=== PATIENT | male | born 1955 | race Caucasian/White ===

== ENCOUNTER 2019-03-14 13:38 | Outpatient (RCR) | payer OTHER, SELFPAY ==
[2018-12-27 15:01] LABS: INR 3.1; Prothrombin Time 31.1 Seconds (11.1-14.7)
[2019-01-24 10:29] LABS: INR 3.5; Prothrombin Time 34.2 Seconds (11.1-14.7)
[2019-02-24 10:27] LABS: INR 3.9; Prothrombin Time 37.3 Seconds (11.1-14.7)
[2019-03-14 15:08] LABS: INR 2.5; Prothrombin Time 26.9 Seconds (11.1-14.7)
== END 2019-03-27 23:59 | disposition home or self-care (01) ==
LOC: ANHLAB 13:38
PROVIDERS: Visit Provider Internal Medicine Cardiovascular Disease
DX: Z51.81 Encounter for therapeutic drug level monitoring (principal); I48.92 Unspecified atrial flutter; Z79.01 Long term (current) use of anticoagulants
CPT/HCPCS: 36415; 85610

== ENCOUNTER 2019-06-25 07:27 | Outpatient (RCR) | payer MEDICARE, OTHER, SELFPAY ==
[2019-04-04 08:24] LABS: INR 3.4; Prothrombin Time 33.9 Seconds (11.1-14.7)
[2019-04-29 07:34] LABS: INR 3.4; Prothrombin Time 33.8 Seconds (11.1-14.7)
[2019-05-27 08:01] LABS: INR 4.8
[2019-06-04 08:51] LABS: INR 3.4; Prothrombin Time 33.5 Seconds (11.1-14.7)
[2019-06-25 08:11] LABS: INR 3.4; Prothrombin Time 33.4 Seconds (11.1-14.7)
== END 2019-07-03 23:59 | disposition home or self-care (01) ==
LOC: ANHLAB 07:27
PROVIDERS: Visit Provider Internal Medicine Cardiovascular Disease
DX: Z51.81 Encounter for therapeutic drug level monitoring (principal); I48.92 Unspecified atrial flutter; Z79.01 Long term (current) use of anticoagulants
CPT/HCPCS: 36415; 85610

== ENCOUNTER 2019-10-13 16:28 | Outpatient (RCR) | payer MEDICARE, SELFPAY ==
[2019-07-23 08:06] LABS: INR 3.9; Prothrombin Time 37.4 Seconds (11.1-14.7)
[2019-08-20 08:16] LABS: INR 2.8; Prothrombin Time 28.6 Seconds (11.1-14.7)
[2019-09-16 14:54] LABS: INR 3.5; Prothrombin Time 34.3 Seconds (11.1-14.7)
[2019-10-13 17:40] LABS: INR 3.3; Prothrombin Time 33.2 Seconds (11.1-14.7)
== END 2019-10-21 23:59 | disposition home or self-care (01) ==
LOC: ANHLAB 16:28
PROVIDERS: Visit Provider Internal Medicine Cardiovascular Disease
DX: Z51.81 Encounter for therapeutic drug level monitoring (principal); I48.92 Unspecified atrial flutter; Z79.01 Long term (current) use of anticoagulants
CPT/HCPCS: 36415; 85610

== ENCOUNTER 2020-01-20 07:06 | Outpatient (RCR) | payer MEDICARE, SELFPAY ==
[2019-11-18 07:36] LABS: Hematocrit 39.1 % (42.0-52.0); Hemoglobin 13.7 g/dL (14.0-18.0); Mean Corpuscular Hemoglobin 31.6 pg (26-34); Mean Corpuscular Volume 90.3 fl (80-100); Mean Platelet Volume 11.6 fl (7.4-10.4); Platelet Count Result 141 k/mm3 (150-375); Red Blood Count 4.33 M/mm3 (4.6-6.20); Red Cell Distribution Width 13.2 % (11.5-14.5); White Blood Count 4.2 K/mm3 (4.5-10.0)
[2019-11-18 07:43] LABS: Add Urine Microscopic? YES; Appearance Urine Clear (Clear); Bilirubin Urine Negative (Negative); Blood Urine Negative (Negative); Color Urine Yellow (Yellow); Glucose Urine UA Negative (Negative); Ketones Urine Negative (Negative); Leukocyte Esterase Ur Negative LEU/UL (NEGATIVE); Mucus Urine Rare /lpf; Nitrate Urine Negative (Negative); Protein Urine Negative (Negative); RBC Urine 0-2 /hpf (0-2); Squamous Epithelial Cell Urine Rare /hpf (Few); Urobilinogen Urine Negative mg/dL (<2.0); WBC Urine 0-3 /hpf (0-3)
[2019-11-18 07:46] LABS: INR 2.8; Prothrombin Time 28.8 Seconds (11.1-14.7)
[2019-11-18 08:01] LABS: Alanine Aminotransferase 42 U/L (4-50); Albumin Level 4.3 g/dL (3.5-5.1); Alkaline Phosphatase 48 U/L (38-126); Anion Gap 7 mmol/L (8-16); Aspartate Amino Transferase 36 U/L (17-59); Bilirubin,Total 0.6 mg/dL (0.2-1.3); Blood Urea Nitrogen 17 mg/dL (9-20); Calcium 9.5 mg/dL (8.4-10.2); Carbon Dioxide 29 mmol/L (22-30); Chloride 103 mmol/L (98-107); Estimated Glomerular Filt Rate > 60; Glucose 166 mg/dL (75-110); Potassium 4.1 mmol/L (3.4-5.0); Sodium 139 mmol/L (137-145)
[2019-11-18 08:07] LABS: Hemoglobin A1C 6.3 % (<5.7)
[2019-11-18 08:32] LABS: Thyroid Stimulating Hormone 0.937 uIU/mL (0.465-4.680)
[2019-11-19 13:08] LABS: Reference Lab Test Result Negative
[2019-12-18 13:13] LABS: INR 2.5; Prothrombin Time 27.6 Seconds (11.1-14.7)
[2020-01-20 08:06] LABS: INR 3.3; Prothrombin Time 33.8 Seconds (11.1-14.7)
== END 2020-02-16 23:59 | disposition home or self-care (01) ==
LOC: ANHLAB 07:06
PROVIDERS: PCP Family Medicine Sports Medicine; Visit Provider Internal Medicine Cardiovascular Disease
DX: Z01.84 Encounter for antibody response examination (principal); Z51.81 Encounter for therapeutic drug level monitoring; I48.92 Unspecified atrial flutter; E11.9 Type 2 diabetes mellitus without complications; N52.9 Male erectile dysfunction, unspecified; Z79.01 Long term (current) use of anticoagulants; Z12.5 Encounter for screening for malignant neoplasm of prostate
CPT/HCPCS: 36415; 80053; 81001; 83036; 84153; 84443; 85027; 85610; 86769

== ENCOUNTER → 2020-02-17 09:50 | Outpatient (CLI) | payer MEDICARE, SELFPAY ==
--- NOTE | ~2020-02-17 | XR_ITS ---
XR knee RT 3V DATE: 02/17/2020 10:29 INDICATION: Osteoarthritis TECHNIQUE: [place] and standing AP and lateral views COMPARISON: None FINDINGS: There is moderate loss of joint space and mild periarticular spurring at the medial compart ment. More prominent periarticular spurring is noted at the patellofemoral joint. Lateral compartment joint space is well preserved. There is hypertrophic change of the tibial spines. No fracture, dislocation, periosteal reaction or bone destruction is evident. Mild suprapatellar knee joint effusion is suggested. IMPRESSION: Mild suprapatellar knee joint effusion Osteoarthritis involving the medial and patellofemoral compartments Reviewed, dictated and finalized at location B. CLE MODIFICATION TECHNICIAN
--- NOTE | ~2020-02-17 | XR_ITS ---
XR knee LT 3V DATE: 02/17/2020 10:29 INDICATION: Osteoarthritis TECHNIQUE: Standing AP and lateral views. [place] view. COMPARISON: None FINDINGS: Moderate osteopenia. There is moderate suprapatellar knee joint effusion. There is severe osteoarthritis of the medial compartment, with virtual obliteration of medial compart ment knee joint space. There is moderately severe osteoarthritis at the patellofemoral compartment an d mild osteoarthritis at the lateral compartment. Chondrocalcinosis is noted. There is mild lateral femoral tibial subluxation. No fracture, dislocation, periosteal reaction or bone destruction is detected. There is extensive arterial calcification. IMPRESSION: Tricompartment osteoarthritis, particularly severe at the medial and patellofemoral becky rtments Knee joint effusion Chondrocalcinosis Reviewed, dictated and finalized at location B. NFORMATICS DEVELOPER IMPRESSION: Tricompartment osteoarthritis, particularly severe at the medial an d patellofemoral compartments Knee joint effusion Chondrocalcinosis
== END ==
PROVIDERS: PCP Family Medicine Sports Medicine; Visit Provider Nurse Practitioner Adult Health
DX: M25.461 Effusion, right knee (principal); M25.462 Effusion, left knee; M17.0 Bilateral primary osteoarthritis of knee
CPT/HCPCS: 73562

== ENCOUNTER → 2020-02-19 13:16 | Outpatient (CLI) | payer MEDICARE, SELFPAY ==
--- NOTE | ~2020-02-19 | MR_ITS ---
EXAMINATION: MR lumbar spine wo con DATE: 02/19/2020 14:08 INDICATION: Lumbar radiculopathy. TECHNIQUE: Magnetic resonance imaging (MRI) of the lumbar spine was performed without intravenous con trast. Sequences included sagittal T2-weighted FSE, sagittal T2-weighted FS FSE, sagittal T1-weighted FSE, and axial T2-weighted FSE. COMPARISON: Lumbar spine MRI 05/04/2010 FINDINGS: There is 9 degrees dextrocurvature of lumbar spine. There is 4 mm retrolisthesis of L2 on L 3 and 5 mm retrolisthesis of L3 on L4. There is 3 mm anterolisthesis of L5 on S1. There are Schmorl's nodes at many levels. There is moderately decreased disc height at L2-L3 and L3-L4. The distal spina l cord signal intensity is normal. The conus medullaris is at L1-L2. There is a 2.1 cm cyst in left [place]. The following disc levels are specifically discussed: L1-L2: The disc is bulging. There is severe right and mild left facet joint osteoarthritis. There is mild right neural foraminal stenosis. There is mild central canal stenosis. L2-L3: The disc is bulging. There is mild bilateral facet joint osteoarthritis. There is moderate rolf ateral neural foraminal stenosis. There is mild central canal stenosis. L3-L4: The disc is bulging and has an annular fissure. There is moderate bilateral facet joint osteoa rthritis. There is moderate right and severe left neural foraminal stenosis. There is mild central ca nal stenosis. L4-L5: The disc is bulging and has an annular fissure. There is severe bilateral facet joint osteoart hritis. There is moderate bilateral neural foraminal stenosis. There is mild central canal stenosis. L5-S1: The disc is bulging. There is severe bilateral facet joint osteoarthritis. There is moderate b ilateral neural foraminal stenosis. There is mild central canal stenosis. IMPRESSION: 1. Moderate lumbar spondylosis, worsened from 05/04/2010. Reviewed, dictated and finalized at location A. COURSE RANGER
== END ==
PROVIDERS: PCP Family Medicine Sports Medicine; Visit Provider Nurse Practitioner Adult Health
DX: M47.26 Other spondylosis with radiculopathy, lumbar region (principal)
CPT/HCPCS: 72148

== ENCOUNTER 2020-04-12 07:16 | Outpatient (RCR) | payer MEDICARE, SELFPAY ==
[2020-02-17 11:32] LABS: INR 2.9
[2020-03-17 07:31] LABS: INR 3.8; Prothrombin Time 37.6 Seconds (11.1-14.7)
[2020-04-12 08:03] LABS: INR 2.5; Prothrombin Time 27.9 Seconds (11.1-14.7)
== END 2020-05-17 23:59 | disposition home or self-care (01) ==
LOC: ANHLAB 07:16
PROVIDERS: PCP Family Medicine Sports Medicine; Visit Provider Internal Medicine Cardiovascular Disease
DX: Z51.81 Encounter for therapeutic drug level monitoring (principal); I48.92 Unspecified atrial flutter; Z79.01 Long term (current) use of anticoagulants
CPT/HCPCS: 36415; 85610

== ENCOUNTER 2020-08-06 09:44 | Outpatient (RCR) | payer MEDICARE, SELFPAY ==
[2020-05-18 08:07] LABS: INR 3.3; Prothrombin Time 33.7 Seconds (11.1-14.7)
[2020-06-15 12:43] LABS: INR 3.7; Prothrombin Time 36.9 Seconds (11.1-14.7)
[2020-07-06 07:58] LABS: INR 3.5; Prothrombin Time 35.5 Seconds (11.1-14.7)
[2020-07-06 08:07] LABS: Anion Gap 8 mmol/L (8-16); Blood Urea Nitrogen 18 mg/dL (9-20); Calcium 9.6 mg/dL (8.4-10.2); Carbon Dioxide 30 mmol/L (22-30); Chloride 102 mmol/L (98-107); Estimated Glomerular Filt Rate > 60; Glucose 171 mg/dL (75-110); Potassium 4.1 mmol/L (3.4-5.0); Sodium 140 mmol/L (137-145)
[2020-08-06 10:23] LABS: INR 3.4; Prothrombin Time 35.1 Seconds (11.1-14.7)
== END 2020-08-16 23:59 | disposition home or self-care (01) ==
LOC: ANHLAB 09:44
PROVIDERS: PCP Family Medicine Sports Medicine; Visit Provider Internal Medicine Cardiovascular Disease
DX: Z51.81 Encounter for therapeutic drug level monitoring (principal); I48.92 Unspecified atrial flutter; Z79.01 Long term (current) use of anticoagulants
CPT/HCPCS: 36415; 80048; 85610

== ENCOUNTER → 2020-08-19 15:25 | Outpatient (CLI) | payer MEDICARE, SELFPAY ==
--- NOTE | ~2020-08-19 | MR_ITS ---
EXAMINATION: MR knee RT wo con DATE: 08/19/2020 16:03 INDICATION: Right knee pain. TECHNIQUE: Magnetic resonance imaging (MRI) of the right knee was performed without intravenous contr ast. Sequences included axial PD-weighted FS FSE, coronal PD-weighted FSE and PD-weighted FS FSE, sag ittal PD-weighted FSE, and sagittal T2-weighted FS FSE. COMPARISON: Right knee radiographs 02/17/2020 FINDINGS: Medial compartment: There is a complex tear involving body and posterior horn of medial meniscus. There is shallow partia l-thickness cartilage loss of tibial condyle. There is extensive partial thickness cartilage loss of femoral condyle, deep at the central and medial articular surface. Osteophytes are noted. Lateral compartment: Lateral meniscus is normal. There is shallow partial-thickness cartilage loss of tibial condyle media lly and posteriorly. There is cartilage surface irregularity of femoral condyle. Osteophytes are note d. Patellofemoral compartment: There is full-thickness cartilage loss of patellar lateral facet and deep partial thickness cartilage loss of patellar median ridge and medial facet with mild subchondral edema-like marrow signal intens ity. There is full-thickness cartilage loss of lateral trochlea with cortical irregularity and mild s ubchondral edema-like marrow signal intensity. Osteophytes are noted. Ligaments and tendons: Anterior cruciate ligament is thickened with increased signal intensity, consistent with mucoid degen eration. Posterior cruciate ligament demonstrates increased signal, likely mucoid degeneration. Media l collateral ligament and fibular collateral ligament are intact. There is mild patellar tendinopathy . Fluid: There is a moderate-sized knee joint effusion. There is mild superficial infrapatellar bursitis. IMPRESSION: 1. Severe chondrosis of patellofemoral compartment, moderate chondrosis of medial compartment, and mi ld chondrosis of lateral compartment. 2. Tear of medial meniscus. 3. Moderate-sized knee joint effusion. Reviewed, dictated and finalized at location A. IMPRESSION: 1. Severe chondrosis of patellofemoral compartment, moderate chondrosis of medi al compartment, and mild chondrosis of lateral compartment. 2. Tear of medial meniscus. 3. Moderate-sized knee joint effusion.
--- NOTE | ~2020-08-19 | XR_ITS ---
EXAMINATION: XR knee RT min 4V DATE: 08/19/2020 16:35 INDICATION: Right knee pain. TECHNIQUE: 4 views of right knee were obtained. COMPARISON: Right knee radiographs 02/17/2020 FINDINGS: Bone alignment is normal. No fracture. There is moderate osteoarthritis of medial and hernandez lofemoral compartments and mild osteoarthritis of lateral compartment. There is a moderate-sized knee joint effusion. IMPRESSION: 1. Moderate right knee osteoarthritis. 2. Moderate-sized right knee joint effusion. Reviewed, dictated and finalized at location A.
== END ==
PROVIDERS: Visit Provider Nurse Practitioner Adult Health
DX: M17.11 Unilateral primary osteoarthritis, right knee (principal); M25.461 Effusion, right knee; S83.241A Other tear of medial meniscus, current injury, right knee, initial encounter; X58.XXXA Exposure to other specified factors, initial encounter
CPT/HCPCS: 73564; 73721

== ENCOUNTER 2020-12-02 07:57 | Outpatient (RCR) | payer MEDICARE, SELFPAY ==
[2020-09-08 08:00] LABS: INR 2.6; Prothrombin Time 27.2 Seconds (11.1-14.7)
[2020-10-13 07:52] LABS: INR 3.7; Prothrombin Time 35.8 Seconds (11.1-14.7)
[2020-12-02 08:31] LABS: Basophils Percent Auto 0.8 % (0.2-1.2); Eosinophils Absolute Auto 0.1 K/mm3 (0-0.3); Eosinophils Percent Auto 3.4 % (0-4.4); Hematocrit 40.5 % (42.0-52.0); Hemoglobin 13.7 g/dL (14.0-18.0); Immature Granulocyte Absolute 0.01 K/mm3 (0.00-0.031); Immature Granulocyte Percent A 0.3 % (0-0.5); Lymphocytes Percent Auto 15.5 % (18.3-44.2); Mean Corpuscular HGB Conc 33.8 g/dl (32-36); Mean Corpuscular Hemoglobin 31.1 pg (26-34); Mean Corpuscular Volume 91.8 fl (80-100); Mean Platelet Volume 11.9 fl (7.4-10.4); Monocytes Absolute Auto 0.6 K/mm3 (0.1-0.6); Monocytes Percent Auto 14.2 % (2.6-8.5); Neutrophils Absolute Auto 2.6 K/mm3 (1.3-6.7); Neutrophils Percent Auto 65.8 % (45.5-73.1); Platelet Count Result 147 k/mm3 (150-375); Red Blood Count 4.41 M/mm3 (4.6-6.20); Red Cell Distribution Width 12.8 % (11.5-14.5); White Blood Count 3.9 K/mm3 (4.5-10.0)
[2020-12-02 08:42] LABS: Alanine Aminotransferase 35 U/L (4-50); Albumin Level 4.6 g/dL (3.5-5.1); Alkaline Phosphatase 52 U/L (38-126); Anion Gap 6 mmol/L (8-16); Aspartate Amino Transferase 34 U/L (17-59); Bilirubin,Total 0.7 mg/dL (0.2-1.3); Blood Urea Nitrogen 17 mg/dL (9-20); Calcium 9.8 mg/dL (8.4-10.2); Carbon Dioxide 30 mmol/L (22-30); Chloride 103 mmol/L (98-107); Estimated Glomerular Filt Rate > 60; Glucose 179 mg/dL (65-110); INR 2.7; Potassium 4.2 mmol/L (3.4-5.0); Prothrombin Time 28.2 Seconds (11.1-14.7); Sodium 139 mmol/L (137-145)
[2020-12-02 09:12] LABS: Prostate Specific Antigen 3.7 ng/mL (< OR = 4.0); Thyroid Stimulating Hormone 0.732 uIU/mL (0.465-4.680)
[2020-12-02 09:31] LABS: Hemoglobin A1C 6.6 % (<5.7)
[2020-12-02 09:51] LABS: Creatinine Urine 94.9 mg/dL
[2020-12-02 09:53] LABS: Folic Acid > 20.0 ng/mL (2.76->20); Vitamin B12 > 1000.0 pg/mL (239-931)
[2020-12-02 09:55] LABS: MALB Creatinine Ratio 14.6 mg/g (0-30); Microalbumin Urine Random 13.9 mg/L (0-16.7)
== END 2020-12-07 23:59 | disposition home or self-care (01) ==
LOC: ANHLAB 07:57
PROVIDERS: PCP Family Medicine Sports Medicine; Visit Provider Internal Medicine Cardiovascular Disease
DX: Z51.81 Encounter for therapeutic drug level monitoring (principal); I48.92 Unspecified atrial flutter; E78.5 Hyperlipidemia, unspecified; E11.9 Type 2 diabetes mellitus without complications; M17.10 Unilateral primary osteoarthritis, unspecified knee; N52.9 Male erectile dysfunction, unspecified; Z12.5 Encounter for screening for malignant neoplasm of prostate; Z79.01 Long term (current) use of anticoagulants
CPT/HCPCS: 36415; 80053; 82043; 82607; 82746; 83036; 84153; 84443; 85025; 85610

== ENCOUNTER 2020-12-04 07:54 | Emergency (ER) | payer MEDICARE, SELFPAY ==
--- NOTE | ~2020-12-04 | XR_ITS ---
EXAMINATION: XR hip RT 2V w AP pelvis INDICATION: Pain after fall TECHNIQUE: AP view the pelvis and two views of the right hip are obtained. COMPARISON: None available FINDINGS: Bone alignment is normal. There is no fracture. There are phleboliths in the pelvis. Mild o steitis pubis is noted. There is calcified atherosclerosis. IMPRESSION: 1. No acute osseous abnormality. Reviewed, dictated and finalized at location A.
--- NOTE | ~2020-12-04 | XR_ITS ---
EXAMINATION: XR forearm RT 2V INDICATION: Right forearm pain and laceration TECHNIQUE: Two views of the right forearm are obtained. COMPARISON: None available FINDINGS: There is a dorsal soft tissue laceration overlying the distal forearm. No definite underlyi ng osseous abnormality is identified. Alignment at the elbow and wrist is normal. There is calcified atherosclerosis. IMPRESSION: 1. No acute osseous abnormality. Reviewed, dictated and finalized at location A.
[2020-12-04 07:56] VITALS: BP 186/77; PULSE 79; RESP 18; TEMP 36.7; O2SAT 98
--- NOTE | 2020-12-04 08:45 | ED.WOUNDLAC ---
HPI - Wound/Laceration General Chief Complaint: Wound/Laceration <Chiara Rosado MD - Last Filed: 12/04/20 18:29> Stated Complaint: Right arm lac <Chiara Rosado MD - Last Filed: 12/04/20 18:29> Time Seen by Provider: 12/04/20 07:56 <Chiara Rosado MD - Last Filed: 12/04/20 18:29> Source: patient and RN notes reviewed <Chiara Rosado MD - Last Filed: 12/04/20 18:29> Mode of arrival: ambulatory <Chiara Rosado MD - Last Filed: 12/04/20 18:29> Limitations: no limitations <Chiara Rosado MD - Last Filed: 12/04/20 18:29> History of Present Illness HPI narrative: This is a 65 year old male right hand dominant who presents for evaluation of right arm laceration. Patient states he accidentally fell of stool, and he hit his right forearm on aluminum pole causing laceration. He was able to get his bleeding under control. He denies difficulty moving his wrist, hand or fingers. He denies numbness or tingling. He has throbbing pain at site of his laceration. He denies hitting his head or LOC. He also reports he fell onto his right hip but he states he has minimal pain. <Chiara Rosado MD - Last Filed: 12/04/20 18:29> Related Data Allergies/Adverse Reactions: Allergies Allergy/AdvReac Type Severity Reaction Status Date / Time No Known Allergies Allergy Unknown Verified 12/04/20 09:44 <Chiara Rosado MD - Last Filed: 12/04/20 18:29> Review of Systems Review of Systems: All systems reviewed & are unremarkable except as noted in HPI and below <Chiara Rosado MD - Last Filed: 12/04/20 18:29> [facility] Past Medical History Medical History: Medical History (Updated 12/04/20 @ 11:05 by Chiara Rosado MD) Atrial fibrillation Chronic anticoagulation Heart valve disease <Chiara Rosado MD - Last Filed: 12/04/20 18:29> Surgical History Surgical History: Surgical History (Updated 12/04/20 @ 08:52 by Chiara Rosado MD) H/O aortic valve replacement History of appendectomy <Chiara Rosado MD - Last Filed: 12/04/20 18:29> Social History Social History: Social History (Updated 12/04/20 @ 08:52 by Chiara Rosado MD) Smoking status: Never smoker Substance use: never <Chiara Rosado MD - Last Filed: 12/04/20 18:29> Exam Const: General: no acute distress and alert <Chiara Rosado MD - Last Filed: 12/04/20 18:29> Orientation/consciousness: patient oriented x3 <Chiara Rosado MD - Last Filed: 12/04/20 18:29> HENMT: Head: normocephalic and atraumatic <Chiara Rosado MD - Last Filed: 12/04/20 18:29> Face and sinus: normal facial exam, sinuses nontender and face symmetric <Chiara Rosado MD - Last Filed: 12/04/20 18:29> Eyes: Pupils: Equal, round and reactive pupils present <Chiara Rosado MD - Last Filed: 12/04/20 18:29> EOM: EOMs intact bilaterally <Chiara Rosado MD - Last Filed: 12/04/20 18:29> Chest: Chest palpation & inspection: normal inspection of the chest <Chiara Rosado MD - Last Filed: 12/04/20 18:29> Resp: Effort & Inspection: normal respiratory effort and retractions <Chiara Rosado MD - Last Filed: 12/04/20 18:29> Skin: Other: see extremity <Chiara Rosado MD - Last Filed: 12/04/20 18:29> Neuro: General: patient oriented x3, moves all extremities and CN's II-XI intact bilaterally <Chiara Rosado MD - Last Filed: 12/04/20 18:29> Gait exam (Neuro): Normal gait present <Chiara Rosado MD - Last Filed: 12/04/20 18:29> Extrem: Other: right forearm laceration approximately 9 cm in length down to dermis, with flap, bleeding controlled, no expose muscle or tendons. Neurovascularly intact <Chiara Rosado MD - Last Filed: 12/04/20 18:29> Psych: Mental Status: mental status grossly normal <Chiara Rosado MD - Last Filed: 12/04/20 18:29> Affect: normal affect <Chiara Rosado MD - Last Filed: 12/04/20 18:29> Course Vital Signs Vital signs:
[2020-12-04] MEDS: TETANUS,DIPHTHERIA,AC PERTUSSIS ADULT (0.5 ML) BOOSTRIX IM (08:46)
[2020-12-04] MEDS: HYDROcodone/acetaminophen (*CRX) 5-325 MG TABLET 1 TAB PO (09:23)
[2020-12-04] MEDS: ONDANSETRON HCL ODT 4 MG TABLET PO (09:23)
[2020-12-04 11:15] VITALS: BP 168/80; PULSE 71; RESP 14; TEMP 36.9; O2SAT 100
== END 2020-12-04 11:17 | disposition home or self-care (01) ==
PROVIDERS: Emergency Provider General Practice; PCP Family Medicine Sports Medicine
DX: S51.811A Laceration without foreign body of right forearm, initial encounter (principal); Z23 Encounter for immunization; I48.91 Unspecified atrial fibrillation; I38 Endocarditis, valve unspecified; Z95.2 Presence of prosthetic heart valve; W08.XXXA Fall from other furniture, initial encounter
CPT/HCPCS: 12004; 73090; 73502; 90471; 90715; 99284; A9270

== ENCOUNTER 2021-03-18 13:51 | Outpatient (RCR) | payer MEDICARE, SELFPAY ==
[2020-12-29 11:34] LABS: INR 2.4; Prothrombin Time 25.6 Seconds (11.1-14.7)
[2021-01-14 08:29] LABS: INR 3.1; Prothrombin Time 31.2 Seconds (11.1-14.7)
[2021-02-15 07:54] LABS: INR 2.3
[2021-03-18 14:20] LABS: INR 2.7; Prothrombin Time 27.9 Seconds (11.1-14.7)
== END 2021-03-29 23:59 | disposition home or self-care (01) ==
LOC: ANHLAB 13:51
PROVIDERS: PCP Family Medicine Sports Medicine; Visit Provider Internal Medicine Cardiovascular Disease
DX: Z51.81 Encounter for therapeutic drug level monitoring (principal); I48.92 Unspecified atrial flutter; Z79.01 Long term (current) use of anticoagulants
CPT/HCPCS: 36415; 85610

== ENCOUNTER 2021-06-10 12:00 | Outpatient (CLI) | payer MEDICARE, SELFPAY ==
[2021-06-10 12:27] LABS: Basophils Percent Auto 0.6 % (0.2-1.2); Eosinophils Absolute Auto 0.1 K/mm3 (0-0.3); Eosinophils Percent Auto 1.9 % (0-4.4); Hematocrit 37.8 % (42.0-52.0); Hemoglobin 12.9 g/dL (14.0-18.0); Lymphocytes Absolute Auto 0.98 K/mm3 (0.9-3.2); Lymphocytes Percent Auto 20.9 % (18.3-44.2); Mean Corpuscular HGB Conc 34.1 g/dl (32-36); Mean Corpuscular Hemoglobin 31.1 pg (26-34); Mean Corpuscular Volume 91.1 fl (80-100); Monocytes Absolute Auto 0.4 K/mm3 (0.1-0.6); Monocytes Percent Auto 9.4 % (2.6-8.5); Neutrophils Absolute Auto 3.1 K/mm3 (1.3-6.7); Neutrophils Percent Auto 67.2 % (45.5-73.1); Platelet Count Result 146 k/mm3 (150-375); Red Blood Count 4.15 M/mm3 (4.6-6.20); Red Cell Distribution Width 13.4 % (11.5-14.5); White Blood Count 4.7 K/mm3 (4.5-10.0)
[2021-06-10 12:37] LABS: Anion Gap 8 mmol/L (8-16); Blood Urea Nitrogen 17 mg/dL (9-20); Carbon Dioxide 27 mmol/L (22-30); Chloride 104 mmol/L (98-107); Estimated Glomerular Filt Rate > 60; Glucose 180 mg/dL (65-110); Sodium 139 mmol/L (137-145)
[2021-06-10 12:38] LABS: Prothrombin Time 37.7 Seconds (11.1-14.7)
== END 2021-06-10 12:01 | disposition home or self-care (01) ==
PROVIDERS: PCP Family Medicine Sports Medicine
DX: I48.92 Unspecified atrial flutter (principal); R07.9 Chest pain, unspecified; I10 Essential (primary) hypertension
CPT/HCPCS: 36415; 80048; 85025; 85610

== ENCOUNTER 2021-07-07 07:06 | Outpatient (RCR) | payer MEDICARE, SELFPAY ==
[2021-04-14 07:48] LABS: INR 3.2; Prothrombin Time 31.7 Seconds (11.1-14.7)
[2021-05-19 10:58] LABS: INR 3.7; Prothrombin Time 35.9 Seconds (11.1-14.7)
[2021-06-24 13:40] LABS: INR 3.2; Prothrombin Time 31.9 Seconds (11.1-14.7)
[2021-07-01 12:13] LABS: INR 3.1; Prothrombin Time 30.6 Seconds (11.1-14.7)
[2021-07-07 07:44] LABS: INR 4.4; Prothrombin Time 40.5 Seconds (11.1-14.7)
== END 2021-07-13 23:59 | disposition home or self-care (01) ==
LOC: ANHLAB 07:06
PROVIDERS: PCP Family Medicine Sports Medicine; Visit Provider Internal Medicine Cardiovascular Disease
DX: Z51.81 Encounter for therapeutic drug level monitoring (principal); I48.92 Unspecified atrial flutter; Z79.01 Long term (current) use of anticoagulants
CPT/HCPCS: 36415; 85610

== ENCOUNTER 2021-07-15 07:00 | Outpatient (CLI) | payer MEDICARE, SELFPAY ==
[2021-07-15 08:23] LABS: INR 2.8; Prothrombin Time 28.4 Seconds (11.1-14.7)
== END 2021-07-15 07:01 | disposition home or self-care (01) ==
PROVIDERS: PCP Family Medicine Sports Medicine; Visit Provider Internal Medicine Cardiovascular Disease
DX: I48.92 Unspecified atrial flutter (principal); Z79.01 Long term (current) use of anticoagulants
CPT/HCPCS: 36415; 85610

== ENCOUNTER 2021-10-08 04:25 | Emergency (ER) | payer MEDICARE, SELFPAY ==
--- NOTE | ~2021-10-08 | XR_ITS ---
EXAMINATION: XR knee RT min 4V DATE: 10/08/2021 07:16 INDICATION: Right knee pain TECHNIQUE: Four views of the right knee were obtained. COMPARISON: 08/19/2020 FINDINGS: There is no fracture. Bone alignment is normal. There is a large joint effusion. There is m oderate tricompartmental osteoarthritis. There is anterior soft tissue swelling overlying the proxima l tibia. Calcified atherosclerosis is noted. IMPRESSION: 1. Large joint effusion. 2. Anterior soft tissue swelling of the leg. 3. Moderate tricompartmental osteoarthritis. Reviewed, dictated and finalized at location A.
[2021-10-08 04:35] VITALS: BP 178/98; PULSE 92; RESP 20; TEMP 36.4; O2SAT 97
[2021-10-08 06:57] VITALS: BP 196/108; PULSE 91; RESP 18; O2SAT 97
[2021-10-08 07:38] LABS: Basophils Percent Auto 0.2 % (0.2-1.2); Eosinophils Percent Auto 0.2 % (0-4.4); Immature Granulocyte Absolute 0.05 K/mm3 (0.00-0.031); Immature Granulocyte Percent A 0.6 % (0-0.5); Lymphocytes Absolute Auto 0.67 K/mm3 (0.9-3.2); Lymphocytes Percent Auto 7.9 % (18.3-44.2); Mean Corpuscular HGB Conc 33.3 g/dl (32-36); Mean Corpuscular Hemoglobin 30.8 pg (26-34); Mean Corpuscular Volume 92.5 fl (80-100); Mean Platelet Volume 11.5 fl (7.4-10.4); Monocytes Absolute Auto 0.8 K/mm3 (0.1-0.6); Monocytes Percent Auto 9.5 % (2.6-8.5); Neutrophils Absolute Auto 6.9 K/mm3 (1.3-6.7); Neutrophils Percent Auto 81.6 % (45.5-73.1); Platelet Count Result 149 k/mm3 (150-375); Red Blood Count 3.89 M/mm3 (4.6-6.20); White Blood Count 8.5 K/mm3 (4.5-10.0)
[2021-10-08 07:47] LABS: INR 1.2; Prothrombin Time 14.5 Seconds (11.1-14.7)
[2021-10-08 07:48] LABS: Partial Thromboplastin Time 42.6 SECONDS (22.3-36.8)
[2021-10-08 07:54] LABS: Anion Gap 9 mmol/L (8-16); Blood Urea Nitrogen 12 mg/dL (9-20); Calcium 9.3 mg/dL (8.4-10.2); Carbon Dioxide 28 mmol/L (22-30); Chloride 96 mmol/L (98-107); Estimated CRCL calculation 105 ml/min; Estimated Glomerular Filt Rate > 60; Glucose 191 mg/dL (65-110); Potassium 3.8 mmol/L (3.4-5.0); Sodium 133 mmol/L (137-145)
[2021-10-08] MEDS: MORPHINE SULFATE (*CRX) 4 MG/ML INJ IV PUSH (07:56)
[2021-10-08 07:57] VITALS: BP 189/97; O2SAT 97
[2021-10-08 08:02] VITALS: BP 200/110; O2SAT 98
--- NOTE | 2021-10-08 09:23 | ED.LOWEXIN ---
HPI - Extremity Injury (Lower) General Chief Complaint: Extremity Injury, Lower Stated Complaint: Right sided knee pain after surgery Time Seen by Provider: 10/08/21 07:03 History of Present Illness HPI Narrative: Patient is a 66-year-old male who presents ER with right knee pain. Underwent arthroscopic surgery to clean up the meniscus had been torn 3 days ago. No fevers or chills or sweats. Has noticed increased swelling. Contacted his surgeon Dr. Griffiths who reported that swelling like this is common after the surgery. Patient notes blood has soaked through his bandage. He has been taking Lovenox and just restarted his Coumadin last night. Related Data Allergies Allergy/AdvReac Type Severity Reaction Status Date / Time No Known Allergies Allergy Unknown Verified 10/08/21 05:17 Review of Systems Review of Systems: All systems reviewed & are unremarkable except as noted in HPI and below Constitutional: Constitutional: Denies chills, Denies fatigue and Denies fever(s) Cardiovascular: Cardiovascular: Denies chest pain, Denies rapid heart rate and Denies radiating jaw, neck or arm pain Respiratory: Respiratory: Denies cough and Denies dyspnea Musculoskeletal: Musculoskeletal: Reports arthralgias, Reports joint swelling and Denies muscle cramps Neurologic: Denies focal weakness and Denies numbness PMFSH Past Medical History Medical History (Updated 10/08/21 @ 11:04 by Yared Sumner MD) Atrial fibrillation Chronic anticoagulation Heart valve disease Surgical History Surgical History (System 01/03/21 @ 08:59 by Naa Barros) H/O aortic valve replacement History of appendectomy Social History Social History (System 01/03/21 @ 08:59 by Naa Barros) Smoking status: Never smoker Substance use: never Exam Narrative: GENERAL: Well-appearing, well-nourished, and in no acute distress. HEAD: Normocephalic, atraumatic. CHEST: Clear to auscultation. No respiratory distress. HEART: Regular rate and rhythm. Normal peripheral pulses. EXTREMITIES: Dressing of the right knee removed. The medial arthroscopic surgical site is oozing bright red blood. Pressure held in redressed. Large effusion to the knee that is mildly tender but has no warmth. No purulent discharge. Neurovascularly intact distal to the affected joint. SKIN: Warm, dry, no rash. NEURO: Alert and oriented x3. PSYCH: Normal mood and affect. Course Course Emergency Course: Multiple attempts made to contact patient's orthopedic surgeon and they were not returned. Suspect patient has hemarthrosis related to his anticoagulation and recent surgery. Recommend continued elevation with ice and compression. We will change patient from [place] to Percocet to try to help control his pain. Discussed return precautions for infection and also urged patient to go to the ER where his surgeon is located should he start having concerns for infection of the knee. Patient verbalized understanding treatment plan. Vital Signs Vital signs: Vital Signs Temperature 97.6 F 10/08/21 04:35 Pulse Rate 92 10/08/21 04:35 Respiratory Rate 20 10/08/21 04:35 Blood Pressure 178/98 H 10/08/21 04:35 Pulse Oximetry 97 10/08/21 04:35 Oxygen Delivery Room Air 10/08/21 04:35 Temperature 97.6 F 10/08/21 04:35 Pulse Rate 91 10/08/21 06:57 Respiratory Rate 18 10/08/21 06:57 Blood Pressure 200/110 H 10/08/21 08:02 Pulse Oximetry 98 10/08/21 08:02 Oxygen Delivery Room Air 10/08/21 04:35 MDM - Extremity Injury (Lower) Lab Data Result diagrams: 10/08/21 07:33 10/08/21 07:33 Labs: Lab Results 10/08/21 10/08/21 10/08/21 Range/Units 07:33 07:33 07:33 WBC 8.5 (4.5-10.0) K/mm3 RBC 3.89 L (4.6-6.20) M/mm3 Hgb 12.0 L (14.0-18.0) g/dL Hct 36.0 L (42.0-52.0) % MCV 92.5 (80-100) fl MCH 30.8 (26-34) pg MCHC 33.3 (32-36) g/dl RDW 16.0 H (11.5-14.5) % Plt Cou
== END 2021-10-08 11:18 | disposition home or self-care (01) ==
PROVIDERS: Emergency Provider Emergency Medicine; PCP Family Medicine Sports Medicine
DX: M25.561 Pain in right knee (principal); Z98.890 Other specified postprocedural states; I48.91 Unspecified atrial fibrillation; Z79.01 Long term (current) use of anticoagulants; I38 Endocarditis, valve unspecified; M17.11 Unilateral primary osteoarthritis, right knee
CPT/HCPCS: 36415; 73564; 80048; 85025; 85610; 85730; 96374; 99284; J2270

== ENCOUNTER 2021-10-14 08:50 | Outpatient (RCR) | payer MEDICARE, SELFPAY ==
[2021-07-19 08:01] LABS: INR 2.7; Prothrombin Time 27.5 Seconds (11.1-14.7)
[2021-07-26 07:50] LABS: INR 3.3; Prothrombin Time 32.6 Seconds (11.1-14.7)
[2021-08-05 07:48] LABS: INR 3.2; Prothrombin Time 31.3 Seconds (11.1-14.7)
[2021-08-17 08:49] LABS: INR 3.1; Prothrombin Time 31.2 Seconds (11.1-14.7)
[2021-09-09 07:38] LABS: INR 2.4; Prothrombin Time 25.6 Seconds (11.1-14.7)
[2021-10-03 08:14] LABS: INR 2.1; Prothrombin Time 22.5 Seconds (11.1-14.7)
[2021-10-10 08:11] LABS: INR 1.2; Prothrombin Time 15.1 Seconds (11.1-14.7)
[2021-10-14 09:27] LABS: INR 1.5; Prothrombin Time 17.6 Seconds (11.1-14.7)
== END 2021-10-17 23:59 | disposition home or self-care (01) ==
LOC: ANHLAB 08:50
PROVIDERS: PCP Family Medicine Sports Medicine; Visit Provider Internal Medicine Cardiovascular Disease
DX: Z51.81 Encounter for therapeutic drug level monitoring (principal); I48.92 Unspecified atrial flutter; Z79.01 Long term (current) use of anticoagulants
CPT/HCPCS: 36415; 85610

== ENCOUNTER 2022-01-02 06:58 | Outpatient (RCR) | payer MEDICARE, SELFPAY ==
[2021-10-18 12:41] LABS: INR 1.5; Prothrombin Time 17.7 Seconds (11.1-14.7)
[2021-10-28 07:22] LABS: INR 2.7; Prothrombin Time 27.8 Seconds (11.1-14.7)
[2021-11-05 07:32] LABS: Prothrombin Time 44.6 Seconds (11.1-14.7)
[2021-11-10 07:58] LABS: Prothrombin Time 30.5 Seconds (11.1-14.7)
[2021-11-17 07:39] LABS: INR 3.3; Prothrombin Time 32.4 Seconds (11.1-14.7)
[2021-12-01 11:57] LABS: INR 2.9; Prothrombin Time 29.3 Seconds (11.1-14.7)
[2022-01-02 07:32] LABS: Prothrombin Time 38.1 Seconds (11.1-14.7)
== END 2022-01-16 23:59 | disposition home or self-care (01) ==
LOC: ANHLAB 06:58
PROVIDERS: PCP Family Medicine Sports Medicine; Visit Provider Internal Medicine Cardiovascular Disease
DX: Z51.81 Encounter for therapeutic drug level monitoring (principal); I48.0 Paroxysmal atrial fibrillation; Z79.01 Long term (current) use of anticoagulants
CPT/HCPCS: 36415; 85610

== ENCOUNTER 2022-01-18 07:11 | Outpatient (CLI) | payer MEDICARE, SELFPAY ==
[2022-01-18 08:56] LABS: Basophils Percent Auto 0.7 % (0.2-1.2); Eosinophils Absolute Auto 0.1 K/mm3 (0-0.3); Eosinophils Percent Auto 1.6 % (0-4.4); Hematocrit 41.1 % (42.0-52.0); Immature Granulocyte Absolute 0.01 K/mm3 (0.00-0.031); Immature Granulocyte Percent A 0.2 % (0-0.5); Lymphocytes Absolute Auto 1.02 K/mm3 (0.9-3.2); Mean Corpuscular HGB Conc 34.1 g/dl (32-36); Mean Corpuscular Volume 91.1 fl (80-100); Mean Platelet Volume 12.4 fl (7.4-10.4); Monocytes Absolute Auto 0.5 K/mm3 (0.1-0.6); Monocytes Percent Auto 9.5 % (2.6-8.5); Platelet Count Result 169 k/mm3 (150-375); Red Blood Count 4.51 M/mm3 (4.6-6.20); Red Cell Distribution Width 13.5 % (11.5-14.5); White Blood Count 5.7 K/mm3 (4.5-10.0)
[2022-01-18 09:10] LABS: Alanine Aminotransferase 37 U/L (6-50); Albumin Level 4.9 g/dL (3.5-5.1); Alkaline Phosphatase 66 U/L (38-126); Anion Gap 8 mmol/L (8-16); Aspartate Amino Transferase 34 U/L (17-59); Bilirubin,Total 0.9 mg/dL (0.2-1.3); Blood Urea Nitrogen 16 mg/dL (9-20); Calcium 9.4 mg/dL (8.4-10.2); Carbon Dioxide 30 mmol/L (22-30); Chloride 105 mmol/L (98-107); Cholesterol 206 mg/dL (0-200); Estimated Glomerular Filt Rate > 60; Glucose 139 mg/dL (65-110); HDL Direct 44 mg/dL; Potassium 4.1 mmol/L (3.4-5.0); Sodium 143 mmol/L (137-145); Triglycerides 151 mg/dL (<150)
[2022-01-18 09:26] LABS: LDL Cholesterol Direct 115 mg/dL
[2022-01-18 09:37] LABS: Prostate Specific Antigen 2.5 ng/mL (< OR = 4.0)
[2022-01-18 10:13] LABS: Folic Acid > 20.0 ng/mL (2.76->20)
== END 2022-01-18 07:12 | disposition home or self-care (01) ==
PROVIDERS: PCP Family Medicine Sports Medicine; Visit Provider Family Medicine Sports Medicine
DX: E11.9 Type 2 diabetes mellitus without complications (principal); E78.5 Hyperlipidemia, unspecified; N52.9 Male erectile dysfunction, unspecified; Z12.5 Encounter for screening for malignant neoplasm of prostate
CPT/HCPCS: 36415; 80053; 80061; 82607; 82746; 84153; 84439; 84443; 85025; G0103

== ENCOUNTER 2022-04-11 06:47 | Outpatient (RCR) | payer MEDICARE, SELFPAY ==
[2022-01-18 09:07] LABS: INR 2.9; Prothrombin Time 29.1 Seconds (11.1-14.7)
[2022-02-23 15:54] LABS: INR 2.5; Prothrombin Time 26.1 Seconds (11.1-14.7)
[2022-03-13 11:24] LABS: INR 2.8; Prothrombin Time 28.2 Seconds (11.1-14.7)
[2022-04-05 07:43] LABS: INR 2.4; Prothrombin Time 25.5 Seconds (11.1-14.7)
[2022-04-10 07:59] LABS: INR 1.9; Prothrombin Time 21.3 Seconds (11.1-14.7)
== END 2022-04-18 23:59 | disposition home or self-care (01) ==
LOC: ANHLAB 06:47
PROVIDERS: PCP Family Medicine Sports Medicine; Visit Provider Internal Medicine Cardiovascular Disease
DX: Z51.81 Encounter for therapeutic drug level monitoring (principal); I48.0 Paroxysmal atrial fibrillation; Z79.01 Long term (current) use of anticoagulants; Z12.5 Encounter for screening for malignant neoplasm of prostate
CPT/HCPCS: 36415; 80053; 80061; 82607; 82746; 84153; 84439; 84443; 85025; 85610; G0103

== ENCOUNTER 2022-05-26 06:51 | Outpatient (CLI) | payer MEDICARE, SELFPAY ==
[2022-05-26 07:44] LABS: Anion Gap 8 mmol/L (8-16); Blood Urea Nitrogen 16 mg/dL (9-20); Calcium 9.4 mg/dL (8.4-10.2); Carbon Dioxide 29 mmol/L (22-30); Chloride 100 mmol/L (98-107); Estimated Glomerular Filt Rate > 60; Glucose 206 mg/dL (65-110); Potassium 4.2 mmol/L (3.4-5.0); Sodium 137 mmol/L (137-145)
[2022-05-26 08:24] LABS: Hemoglobin 13.2 g/dL (14.0-18.0); Mean Corpuscular Hemoglobin 30.2 pg (26-34); Mean Corpuscular Volume 91.5 fl (80-100); Mean Platelet Volume 11.8 fl (7.4-10.4); Platelet Count Result 201 k/mm3 (150-375); Red Blood Count 4.37 M/mm3 (4.6-6.20); Red Cell Distribution Width 14.2 % (11.5-14.5); White Blood Count 5.4 K/mm3 (4.5-10.0)
[2022-05-26 09:35] LABS: Hemoglobin A1C 7.6 % (<5.7)
== END 2022-05-26 06:52 | disposition home or self-care (01) ==
PROVIDERS: PCP Family Medicine Sports Medicine; Visit Provider Orthopaedic Surgery
DX: Z01.812 Encounter for preprocedural laboratory examination (principal)
CPT/HCPCS: 36415; 80048; 83036; 85027

== ENCOUNTER 2022-07-14 14:26 | Outpatient (RCR) | payer MEDICARE, SELFPAY ==
[2022-05-01 08:30] LABS: INR 3.4; Prothrombin Time 33.6 Seconds (11.1-14.7)
[2022-05-26 08:03] LABS: INR 2.7; Prothrombin Time 28.1 Seconds (11.1-14.7)
[2022-06-27 08:04] LABS: INR 2.2; Prothrombin Time 25.6 Seconds (11.1-14.7)
[2022-07-04 07:56] LABS: Prothrombin Time 23.6 Seconds (11.1-14.7)
[2022-07-14 15:25] LABS: INR 2.5; Prothrombin Time 28.9 Seconds (11.1-14.7)
== END 2022-07-30 23:59 | disposition home or self-care (01) ==
LOC: ANHLAB 14:26
PROVIDERS: PCP Family Medicine Sports Medicine; Visit Provider Internal Medicine Cardiovascular Disease
DX: Z51.81 Encounter for therapeutic drug level monitoring (principal); I48.4 Atypical atrial flutter; Z79.01 Long term (current) use of anticoagulants
CPT/HCPCS: 36415; 80048; 83036; 85027; 85610

== ENCOUNTER 2022-08-17 06:44 | Outpatient (CLI) | payer MEDICARE, SELFPAY ==
[2022-08-17 07:29] LABS: Appearance Urine Clear (Clear); Bilirubin Urine Negative (Negative); Blood Urine Negative (Negative); Color Urine Yellow (Yellow); Glucose Urine UA Negative (Negative); Ketones Urine Negative (Negative); Leukocyte Esterase Ur Negative LEU/UL (Negative); Nitrate Urine Negative (Negative); Protein Urine Negative (Negative)
[2022-08-17 07:36] LABS: Hemoglobin A1C 6.6 % (<5.7)
[2022-08-17 07:43] LABS: Alanine Aminotransferase 48 U/L (6-50); Albumin Level 4.4 g/dL (3.5-5.1); Alkaline Phosphatase 71 U/L (38-126); Anion Gap 4 mmol/L (8-16); Aspartate Amino Transferase 49 U/L (17-59); Bilirubin,Total 0.9 mg/dL (0.2-1.3); Blood Urea Nitrogen 16 mg/dL (9-20); Calcium 9.1 mg/dL (8.4-10.2); Carbon Dioxide 33 mmol/L (22-30); Chloride 99 mmol/L (98-107); Estimated Glomerular Filt Rate > 60; Glucose 152 mg/dL (65-110); Potassium 4.2 mmol/L (3.4-5.0); Sodium 136 mmol/L (137-145)
[2022-08-17 07:48] LABS: Add Urine Microscopic? NO
[2022-08-17 08:15] LABS: Creatinine Urine 60.3 mg/dL
== END 2022-08-17 06:45 | disposition home or self-care (01) ==
LOC: ANHLAB 06:47
PROVIDERS: PCP Family Medicine Sports Medicine; Visit Provider Family Medicine Sports Medicine
DX: E11.9 Type 2 diabetes mellitus without complications (principal)
CPT/HCPCS: 36415; 80053; 81003; 82043; 83036

== ENCOUNTER 2022-09-13 07:05 | Outpatient (CLI) | payer MEDICARE, SELFPAY ==
[2022-09-13 07:51] LABS: Appearance Urine Clear (Clear); Bilirubin Urine Negative (Negative); Blood Urine Negative (Negative); Color Urine Dark Yellow (Yellow); Glucose Urine UA Negative (Negative); Ketones Urine Negative (Negative); Leukocyte Esterase Ur Negative LEU/UL (Negative); Nitrate Urine Negative (Negative); Protein Urine Negative (Negative); Specific Grav Ur 1.019 (1.001-1.035); pH Urine 5.5 (5.0-9.0)
[2022-09-13 07:54] LABS: Hematocrit 41.3 % (42.0-52.0); Hemoglobin 13.2 g/dL (14.0-18.0); Mean Corpuscular Hemoglobin 30.1 pg (26-34); Mean Corpuscular Volume 94.1 fl (80-100); Mean Platelet Volume 12.4 fl (7.4-10.4); Platelet Count Result 139 k/mm3 (150-375); Red Blood Count 4.39 M/mm3 (4.6-6.20); Red Cell Distribution Width 13.7 % (11.5-14.5); White Blood Count 5.1 K/mm3 (4.5-10.0)
[2022-09-13 07:57] LABS: Hemoglobin A1C 6.5 % (<5.7)
[2022-09-13 07:58] LABS: Alanine Aminotransferase 46 U/L (6-50); Albumin Level 4.6 g/dL (3.5-5.1); Alkaline Phosphatase 76 U/L (38-126); Anion Gap 8 mmol/L (8-16); Aspartate Amino Transferase 41 U/L (17-59); Bilirubin,Total 0.9 mg/dL (0.2-1.3); Blood Urea Nitrogen 16 mg/dL (9-20); Calcium 9.6 mg/dL (8.4-10.2); Carbon Dioxide 31 mmol/L (22-30); Chloride 101 mmol/L (98-107); Estimated Glomerular Filt Rate > 60; Glucose 125 mg/dL (65-110); Potassium 4.5 mmol/L (3.4-5.0); Sodium 140 mmol/L (137-145)
[2022-09-13 08:28] LABS: Add Urine Microscopic? NO
[2022-09-13 08:50] LABS: Creatinine Urine 119.9 mg/dL
[2022-09-13 08:56] LABS: MALB Creatinine Ratio 40.6 mg/g (0-30); Microalbumin Urine Random 48.7 mg/L (0-16.7)
== END 2022-09-13 07:06 | disposition home or self-care (01) ==
PROVIDERS: PCP Family Medicine Sports Medicine; Visit Provider Family Medicine Sports Medicine
DX: Z01.818 Encounter for other preprocedural examination (principal); E11.9 Type 2 diabetes mellitus without complications; E78.5 Hyperlipidemia, unspecified; I10 Essential (primary) hypertension; Z79.01 Long term (current) use of anticoagulants
CPT/HCPCS: 36415; 80053; 81003; 82043; 83036; 85027; 85610

== ENCOUNTER 2022-11-14 06:54 | Outpatient (RCR) | payer MEDICARE, SELFPAY ==
[2022-08-17 07:36] LABS: INR 2.8; Prothrombin Time 31.3 Seconds (11.1-14.7)
[2022-09-13 08:31] LABS: INR 3.1; Prothrombin Time 34.2 Seconds (11.1-14.7)
[2022-10-11 08:22] LABS: INR 2.8; Prothrombin Time 31.4 Seconds (11.1-14.7)
[2022-11-14 07:35] LABS: INR 3.1; Prothrombin Time 34.9 Seconds (11.1-14.7)
== END 2022-11-15 23:59 | disposition home or self-care (01) ==
LOC: ANHLAB 06:54
PROVIDERS: PCP Family Medicine Sports Medicine; Visit Provider Internal Medicine Cardiovascular Disease
DX: Z51.81 Encounter for therapeutic drug level monitoring (principal); I48.0 Paroxysmal atrial fibrillation; Z79.899 Other long term (current) drug therapy
CPT/HCPCS: 36415; 80053; 81003; 82043; 83036; 85610

== ENCOUNTER 2023-02-15 06:48 | Outpatient (RCR) | payer MEDICARE, SELFPAY ==
[2022-11-18 07:27] LABS: Prothrombin Time 24.2 Seconds (11.1-14.7)
[2022-12-20 08:09] LABS: INR 1.6; Prothrombin Time 20.4 Seconds (11.1-14.7)
[2022-12-22 07:47] LABS: INR 1.6
[2022-12-25 08:07] LABS: INR 1.8
[2022-12-27 07:34] LABS: INR 2.1; Prothrombin Time 25.1 Seconds (11.1-14.7)
[2023-01-01 07:50] LABS: INR 2.1; Prothrombin Time 25.4 Seconds (11.1-14.7)
[2023-01-08 07:16] LABS: INR 2.5
[2023-01-18 11:09] LABS: INR 2.9; Prothrombin Time 32.1 Seconds (11.1-14.7)
[2023-02-01 09:50] LABS: INR 3.6; Prothrombin Time 38.7 Seconds (11.1-14.7)
[2023-02-15 08:19] LABS: INR 3.2; Prothrombin Time 35.3 Seconds (11.1-14.7)
== END 2023-02-16 23:59 | disposition home or self-care (01) ==
LOC: ANHLAB 06:48
PROVIDERS: PCP Family Medicine Sports Medicine; Visit Provider Internal Medicine Cardiovascular Disease
DX: I48.91 Unspecified atrial fibrillation (principal); Z95.2 Presence of prosthetic heart valve
CPT/HCPCS: 36415; 85610

== ENCOUNTER 2023-03-09 13:57 | Outpatient (CLI) | payer MEDICARE, SELFPAY ==
[2023-03-09 14:35] LABS: Hematocrit 40.6 % (42.0-52.0); Hemoglobin 13.3 g/dL (14.0-18.0)
[2023-03-09 14:48] LABS: Blood Urea Nitrogen 18 mg/dL (9-20); Estimated Glomerular Filt Rate > 60; Magnesium 1.8 mg/dL (1.6-2.3)
[2023-03-09 15:02] LABS: Iron 118 ug/dL (49-181)
[2023-03-09 15:12] LABS: Percent Iron Saturation 30 % (20-50)
[2023-03-09 15:40] LABS: Erythrocyte Sedimentation Rate 13 mm/hr (0-20)
[2023-03-09 15:44] LABS: Vitamin B12 > 1000.0 pg/mL (239-931)
[2023-03-13 00:56] LABS: Alpha-Tocopherol 15.4 mg/L (5.7-19.9); Beta-Gamma Tocopherol 1.1 mg/L (<=4.3)
[2023-03-13 14:45] LABS: Red Blood Cell Folate 653 ng/mL RBC (>280)
== END 2023-03-09 13:58 | disposition home or self-care (01) ==
PROVIDERS: PCP Family Medicine Sports Medicine; Visit Provider Internal Medicine Pulmonary Disease
DX: G47.61 Periodic limb movement disorder (principal); D50.8 Other iron deficiency anemias; E83.42 Hypomagnesemia
CPT/HCPCS: 36415; 82565; 82607; 82728; 82747; 83540; 83550; 83735; 84446; 84520; 85014; 85018; 85652

== ENCOUNTER 2023-06-04 06:53 | Outpatient (RCR) | payer MEDICARE, SELFPAY ==
[2023-03-09 14:45] LABS: INR 3.1; Prothrombin Time 34.3 Seconds (11.1-14.7)
[2023-04-11 15:37] LABS: INR 2.8; Prothrombin Time 31.3 Seconds (11.1-14.7)
[2023-05-04 08:15] LABS: INR 2.7
[2023-05-22 07:40] LABS: INR 3.9; Prothrombin Time 41.9 Seconds (11.1-14.7)
[2023-06-04 07:55] LABS: INR 3.7; Prothrombin Time 39.9 Seconds (11.1-14.7)
== END 2023-06-07 23:59 | disposition home or self-care (01) ==
LOC: ANHLAB 06:53
PROVIDERS: PCP Family Medicine Sports Medicine; Visit Provider Internal Medicine Cardiovascular Disease
DX: I48.91 Unspecified atrial fibrillation (principal); Z95.2 Presence of prosthetic heart valve
CPT/HCPCS: 36415; 82565; 82607; 82728; 82747; 83540; 83550; 83735; 84446; 84520; 85014; 85018; 85610; 85652

== ENCOUNTER 2023-06-04 10:47 | Outpatient (CLI) | payer MEDICARE, SELFPAY ==
--- NOTE | ~2023-06-04 | CT_ITS ---
EXAMINATION: CT soft tissue neck w con DATE: 06/04/2023 11:18 INDICATION: Left neck pain. Odynophagia. TECHNIQUE: Computed tomography (CT) of the neck was performed with 75 mL Omnipaque-350 intravenous co ntrast. Automated exposure control and iterative reconstruction technique were employed. The dose-lukas gth product was 461.71 mGy-cm. COMPARISON: None FINDINGS: There is a 3.4 x 2.3 cm mass involving the left floor of mouth and left base of tongue. The re is a 14 x 10 mm necrotic high left internal jugular chain lymph node, consistent with metastatic d isease. There is plaque in the proximal internal carotid arteries with less than 50% stenosis relativ e to normal distal artery lumen diameters. There are calcifications in the palatine tonsils. There is mild mucosal thickening in the paranasal sinuses. The mastoid air cells are normal. There is ectasia of the visualized portion of ascending aorta measuring 4.4 cm. There is severe cervical spondylosis. IMPRESSION: 1. 3.4 x 2.3 cm mass involving the left floor of mouth and left base of tongue, consistent with squam ous cell carcinoma. 2. Necrotic left high internal jugular chain lymph node, consistent with metastatic disease. Reviewed, dictated and finalized at location E. IMPRESSION: 1. 3.4 x 2.3 cm mass involving the left floor of mouth and left base of tongue, consistent with squamous cell carcinoma. 2. Necrotic left high internal jugular chain lymph node, consistent with metast atic disease.
[2023-06-04 11:08] LABS: Estimated Glomerular Filt Rate > 60
== END 2023-06-04 10:48 ==
LOC: MICIMG 10:49
PROVIDERS: PCP Otolaryngology; Visit Provider Otolaryngology
DX: R13.10 Dysphagia, unspecified (principal)
CPT/HCPCS: 70491; Q9967

== ENCOUNTER 2023-06-09 08:35 | Outpatient (CLI) | payer MEDICARE, SELFPAY ==
--- NOTE | 2023-06-09 08:56 | ECG_ITS ---
SEE SCANNED COPY FOR CONFIRMED REPORT MTDD
[2023-06-09 09:19] LABS: INR 1.6; Prothrombin Time 20.2 Seconds (11.1-14.7)
[2023-06-09 09:20] LABS: Partial Thromboplastin Time 35.9 Seconds (22.3-36.8)
[2023-06-09 09:23] LABS: Anion Gap 8 mmol/L (4-12); Blood Urea Nitrogen 19 mg/dL (9-20); Calcium 9.9 mg/dL (8.4-10.2); Carbon Dioxide 28 mmol/L (22-30); Chloride 104 mmol/L (98-107); Estimated Glomerular Filt Rate > 60; Glucose 171 mg/dL (65-110); Potassium 4.2 mmol/L (3.4-5.0); Sodium 140 mmol/L (137-145)
== END 2023-06-09 08:36 | disposition home or self-care (01) ==
LOC: ANHLAB 08:39
PROVIDERS: PCP Family Medicine; Referring Provider Internal Medicine Cardiovascular Disease; Visit Provider Anesthesiology
DX: E11.9 Type 2 diabetes mellitus without complications (principal); Z51.81 Encounter for therapeutic drug level monitoring; Z79.01 Long term (current) use of anticoagulants; I10 Essential (primary) hypertension; Z01.818 Encounter for other preprocedural examination
CPT/HCPCS: 36415; 80048; 85610; 85730; 93005

== ENCOUNTER 2023-06-11 03:37 | Day surgery (SDC) | payer MEDICARE, SELFPAY ==
[2023-06-08 08:49] VITALS: BMI 26.9
--- NOTE | 2023-06-08 09:21 | PC.NURSE ---
Report to the Outpatient Waiting Room, entrance under the green pavilion located off [facility], at time __1:00PM on date ___06/11/23____. Planned Procedure Time: ___3:00PM . Time changes happen often and if your time is changed the preop area will call you the afternoon before. - You and your visitor will be asked to self-screen and do not enter if you have any COVID symptoms. - A mask is optional within the hospital at this time. Patients may have clear liquids (water, carbonated beverages, clear teas, apple juice) until 3 hours prior to surgery with a maximum of 20 ounces. - No food from midnight until time of surgery. Take the following medications with a SIP of water the morning of surgery: ____FLECAINIDE, METOPROLOL DO NOT STOP ANY OF YOUR OTHER PRESCRIPTION MEDICATIONS PRIOR TO SURGERY ?EXCEPT THE FOLLOWING Medications to discontinue per physician __HOLD COUMADIN 4 DAYS PRE-OP PER DR MCCLURE- LAST DOSE 06/06/23. BRIDGE WITH LOVENOX WHEN INR < 2-2.2 PER PATIENT. HOLD ALL VITAMINS/SUPPLEMENTS 3 DAYS PRE-OP PER ANESTHESIA STARTING NOW- 06/08/23. Please no make-up, nail tamazight, hairspray, perfume, deodorant, or body powder the day of surgery. No jewelry (including any body piercings) or valuables the day of surgery, leave them at home. Please take a shower or bath the night before, or the morning of, surgery with an antibacterial soap. Wear comfortable, loose fitting clothing. - Jewelry must be removed prior to entering the operating room. Rings and piercings that are not removed may be cut off. - The hospital will not accept responsibility for valuables. - Please leave all valuables, including medications, at home the day of surgery. If you are going home after surgery, a licensed lumber driver must drive you home. - NO public transportation without another adult if you receive anesthesia. - We recommend that an adult stay with you for 24 hours following discharge. - We also recommend that you do not drive, make important decision, drink alcoholic beverages, or take any drugs that were not prescribed by your health care provider for at least 24 hours after your discharge time. Follow any additional instructions given to you from your surgeon. If you or anyone in your household have experienced Covid symptoms in the past week, please notify your surgeon or the nurse liaison at the phone number below for possible testing. Telephone instructions given to ____PATIENT and asked if any additional questions and then verbalized understanding. Patient advised to call surgeon office or pre surgery nurse liaison [phone] if any additional questions.
[2023-06-11] VITALS (8 sets, daily range): BP systolic 137–162; BP diastolic 59–87; PULSE 71–82; RESP 12–14; TEMP 35.9–36.6; O2SAT 95–100; BMI 26.9
[2023-06-11 13:26] LABS: Glucose Point of Care 129 mg/dl (65-105)
--- NOTE | 2023-06-11 13:43 | WPDANESEPPF ---
Anes - Initial Pre Proc Eval Procedure: Operation Date: 06/11/23 15:00 Proposed Procedures p Direct Laryngoscopy with Biopsy - Laith Traylor MD Date/Time: 06/11/23 13:43 Surgeon: Laith Traylor MD Pre Op Diagnosis: Neoplasm of Tongue Patient Data Age: 68 Gender: M Height: 1.78 m Weight: 85 kg Allergies Allergy/AdvReac Type Severity Reaction Status Date / Time No Known Allergies Allergy Unknown Verified 06/08/23 08:31 Home Medications Medication Instructions Recorded Confirmed Type ascorbic acid (vitamin C) 1,000 mg 1 g PO DAILY 06/08/23 06/08/23 History capsule aspirin 81 mg tablet,delayed 81 mg PO DAILY 06/08/23 06/08/23 History release (Adult Low Dose Aspirin) cholecalciferol (vitamin D3) 50 50 mcg PO DAILY 06/08/23 06/08/23 History mcg (2,000 unit) tablet cyanocobalamin (vitamin B-12) 1,000 mcg PO DAILY 06/08/23 06/08/23 History 1,000 mcg tablet docusate sodium 100 mg capsule 100 mg PO DAILY 06/08/23 06/08/23 History (Colace) enoxaparin 80 mg/0.8 mL 80 mg subcut BID 06/08/23 06/08/23 History subcutaneous syringe flecainide 100 mg tablet 100 mg PO BID 06/08/23 06/08/23 History geriatric multivitamin-min 1 tablet PO DAILY 06/08/23 06/08/23 History lisinopril 20 mg tablet 20 mg PO QAM 06/08/23 06/08/23 History metformin 500 mg tablet 500 mg PO BID 06/08/23 06/08/23 History metoprolol succinate 50 mg 50 mg PO QAM 06/08/23 06/08/23 History tablet,extended release 24 hr pantoprazole 40 mg tablet,delayed 40 mg PO DAILY 06/08/23 06/08/23 History release simvastatin 20 mg tablet 20 mg PO HS 06/08/23 06/08/23 History warfarin 5 mg tablet 7.5 mg PO DIRECTED 06/08/23 06/08/23 History warfarin 6 mg tablet 6 mg PO DAILY 06/08/23 06/08/23 History Laboratory Tests 06/11/23 13:19 POC Capillary Glucose 129 H mg/dl (65-105) Patient hx anesthesia problems: none Family hx anesthesia problems: none Results Review: All pre-operative results and documents have been reviewed as part of the pre-operative evaluation. [facility] Past Medical History Medical History Atrial fibrillation Chronic anticoagulation Heart valve disease Surgical History Surgical History H/O aortic valve replacement History of appendectomy Social History Social History Smoking status: Never smoker Alcohol intake: current Drinks per week: 15 Substance use: never Living arrangements: with family Additional living arrangements comments: Spiritual care concerns: No Anes - Eval Final PreProcedure Day of Procedure 06/11/23 13:43 Patient weight: overweight Heart: irregular rhythm Lungs: clear to auscultation Airway: Mallampati scale class II Neurological: alert and oriented Last oral intake: >/= 8 hours ASA classification: III Emergent: no Anesthetic plan: proceed Anesthesia type and monitoring: general ETT and standard monitoring Results Review: All pre-operative results and documents have been reviewed as part of the pre-operative evaluation. Informed Consent: The patient's anesthetic plan and its attendant risks and benefits were discussed with the patient/family/POA. Questions were solicited and answers provided to the satisfaction of the patient/family/POA.
[2023-06-11] MEDS: LACTATED RINGERS 1,000 ML 30 ML IV CONT (14:18)
--- NOTE | 2023-06-11 14:21 | WPDHPUPDATE1 ---
History and Physical Update Update Date/Time: 06/11/23 14:21 History and Physical has been reviewed, including an updated exam of the patient. There are NO changes in the patient's condition. Risks, benefits, and alternatives have been discussed and questions answered. Patient agrees to proceed with procedure.
[2023-06-11] MEDS: ceFAZolin 2 GM/D5W 50 ML 2 GM/50 ML BAG IVPB (14:34)
[2023-06-11] MEDS: OXYMETAZOLINE HCL 0.05% NAS 15 ML BTL (*BKC) 1 SPRAY NASAL (14:38)
--- NOTE | 2023-06-11 15:10 | W.PM.PROC2 ---
Procedure Note - Detailed Date of Procedure 06/11/23 Pre-op Diagnosis Neoplasm of Tongue Post-op Diagnosis Same Procedure Performed Direct laryngoscopy, endoscopic assisted biopsy of tonsil and posterior tongue Surgeon Laith Traylor MD Anesthesia General Indications Left tonsillar enlargement, base of tongue mass Findings No obvious neoplasm appreciated. Took biopsies of left tonsil which was enlarged. Also took two separate biopsies of base of tongue. Description of Procedure On the date of surgery, the patient was identified in the preoperative holding area. All questions answered, consent signed and verified and they agreed to proceed. They were then brought to the OR and placed under general endotracheal anesthesia with a 6.5 sized endotracheal tube. A shoulder roll was placed. Timeout was performed verifying the correct patient identity and procedure to be performed which they were. The patient was then draped in standard fashion for direct laryngoscopy with biopsy. The bed was rotated 90 degrees counter-clockwise and a dental guard was placed to protect the upper teeth. A laryngoscope was then advanced in the oral cavity and upper airway to visualize all subsites of the oral cavity, oropharynx, hypopharynx and larynx. The left tonsil is slightly enlarged. Did not appreciate an obvious tongue base mass on the mucosal surface. Biopsies were taken of the base of tongue in two separate locations (first was more midline, second was lateral. Biopsy also taken of tonsil. Bleeding controlled with afrin soaked cottonoids. With all specimen removed, the procedure was concluded. The laryngoscope was removed, the dental guard removed, and the oral cavity was examined showing no injury to lips, gums, teeth or tongue. Care of the patient was returned to anesthesia who extubated the patient and transferred to the PACU for recovery in stable condition without complication. Laith Traylor M.D. Estimated Blood Loss 5 Drains No Packing No Pathology Yes (tonsil and tongue base) Complications No immediate complications Condition Stable Disposition PACU
[2023-06-11 15:37] LABS: Glucose Point of Care 128 mg/dl (65-105)
[2023-06-11] MEDS: oxyCODONE HCL (*CRX) 5 MG TAB IR PO (16:35)
== END 2023-06-11 17:13 | disposition home or self-care (01) ==
PROVIDERS: PCP Family Medicine; Visit Provider Otolaryngology
PROC: 0CJS8ZZ Inspection of Larynx, Via Natural or Artificial Opening Endoscopic (ICD-10-PCS; CPT 31535; principal; 2023-06-11 15:00)
DX: J35.8 Other chronic diseases of tonsils and adenoids (principal); K11.23 Chronic sialoadenitis; I48.91 Unspecified atrial fibrillation; I38 Endocarditis, valve unspecified; Z79.84 Long term (current) use of oral hypoglycemic drugs; Z79.01 Long term (current) use of anticoagulants; Z79.82 Long term (current) use of aspirin; Z98.890 Other specified postprocedural states
CPT/HCPCS: 31535; 82948; 88305; A9270; J0330; J0690; J1100; J2250; J2405; J2704; J3010; J7120

== ENCOUNTER 2023-09-07 06:54 | Outpatient (RCR) | payer MEDICARE, SELFPAY ==
[2023-06-14 12:29] LABS: INR 2.2; Prothrombin Time 25.8 Seconds (11.1-14.7)
[2023-06-23 09:20] LABS: INR 2.6
[2023-07-02 07:54] LABS: Prothrombin Time 33.6 Seconds (11.1-14.7)
[2023-07-25 07:32] LABS: INR 2.9; Prothrombin Time 30.8 Seconds (11.1-14.7)
[2023-08-22 08:39] LABS: INR 4.4; Prothrombin Time 41.8 Seconds (11.1-14.7)
[2023-09-07 07:42] LABS: INR 4.5; Prothrombin Time 42.9 Seconds (11.1-14.7)
== END 2023-09-12 23:59 | disposition home or self-care (01) ==
LOC: ANHLAB 06:54
PROVIDERS: PCP Family Medicine; Visit Provider Internal Medicine Cardiovascular Disease
DX: I48.92 Unspecified atrial flutter (principal); Z95.2 Presence of prosthetic heart valve
CPT/HCPCS: 36415; 85610

== ENCOUNTER 2023-10-02 07:26 | Outpatient (RCR) | payer MEDICARE, SELFPAY ==
[2023-10-02 08:18] LABS: INR 3.8; Prothrombin Time 38.2 Seconds (11.1-14.7)
== END 2023-10-19 07:02 | disposition home or self-care (01) ==
LOC: ANHLAB 07:26
PROVIDERS: PCP Family Medicine; Visit Provider Internal Medicine Cardiovascular Disease
DX: I48.92 Unspecified atrial flutter (principal); Z95.2 Presence of prosthetic heart valve
CPT/HCPCS: 36415; 85610

== ENCOUNTER 2024-01-05 06:56 | Outpatient (CLI) | payer MEDICARE, SELFPAY ==
[2024-01-05 07:29] LABS: INR 2.1; Prothrombin Time 24.4 Seconds (11.1-14.7)
== END 2024-01-05 06:57 | disposition home or self-care (01) ==
LOC: ANHLAB 06:58
PROVIDERS: PCP Family Medicine; Visit Provider Internal Medicine Cardiovascular Disease
DX: Z79.01 Long term (current) use of anticoagulants (principal); Z95.2 Presence of prosthetic heart valve
CPT/HCPCS: 36415; 85610

== ENCOUNTER 2024-01-11 06:45 | Outpatient (RCR) | payer MEDICARE, SELFPAY ==
[2023-10-17 17:41] LABS: Prothrombin Time 75.9 Seconds (11.1-14.7)
[2023-10-17 21:41] LABS: INR 9.4
[2023-10-19 07:58] LABS: Prothrombin Time 63.8 Seconds (11.1-14.7)
[2023-10-19 08:13] LABS: INR 7.5
[2023-10-22 17:11] LABS: Prothrombin Time 62.5 Seconds (11.1-14.7)
[2023-10-22 18:33] LABS: INR 7.2
[2023-10-24 16:24] LABS: Hematocrit 26.2 % (42.0-52.0); Hemoglobin 9.1 g/dL (14.0-18.0)
[2023-10-24 16:34] LABS: INR 2.5; Prothrombin Time 27.8 Seconds (11.1-14.7)
[2023-10-30 09:02] LABS: Prothrombin Time 51.1 Seconds (11.1-14.7)
[2023-10-30 09:44] LABS: INR 5.7
[2023-11-05 14:01] LABS: Prothrombin Time 55.4 Seconds (11.1-14.7)
[2023-11-05 14:39] LABS: INR 6.3
[2023-11-12 10:58] LABS: INR 2.2; Prothrombin Time 24.9 Seconds (11.1-14.7)
[2023-11-22 08:40] LABS: INR 1.5
[2023-11-29 08:07] LABS: INR 1.3; Prothrombin Time 16.8 Seconds (11.1-14.7)
[2024-01-01 08:09] LABS: INR 1.8; Prothrombin Time 21.5 Seconds (11.1-14.7)
[2024-01-11 07:15] LABS: INR 2.8; Prothrombin Time 29.4 Seconds (11.1-14.7)
== END 2024-01-15 23:59 | disposition home or self-care (01) ==
LOC: ANHLAB 06:45
PROVIDERS: PCP Family Medicine; Visit Provider Internal Medicine Cardiovascular Disease
DX: Z51.81 Encounter for therapeutic drug level monitoring (principal); I48.0 Paroxysmal atrial fibrillation; Z79.01 Long term (current) use of anticoagulants
CPT/HCPCS: 36415; 82728; 85014; 85018; 85610

== ENCOUNTER 2024-04-18 06:58 | Outpatient (RCR) | payer MEDICARE, SELFPAY ==
[2024-01-24 09:21] LABS: INR 3.6; Prothrombin Time 35.9 Seconds (11.1-14.7)
[2024-02-04 08:40] LABS: INR 2.9; Prothrombin Time 30.9 Seconds (11.1-14.7)
[2024-02-22 07:33] LABS: INR 2.2; Prothrombin Time 24.8 Seconds (11.1-14.7)
[2024-03-01 08:26] LABS: INR 3.1; Prothrombin Time 33.1 Seconds (11.1-14.7)
[2024-03-25 09:09] LABS: INR 2.6
[2024-04-18 08:27] LABS: Prothrombin Time 31.8 Seconds (11.1-14.7)
== END 2024-04-23 23:59 | disposition home or self-care (01) ==
LOC: ANHLAB 06:58
PROVIDERS: PCP Family Medicine; Visit Provider Internal Medicine Cardiovascular Disease
DX: I48.0 Paroxysmal atrial fibrillation (principal); Z79.01 Long term (current) use of anticoagulants
CPT/HCPCS: 36415; 85610

== ENCOUNTER 2024-04-18 06:59 | Outpatient (CLI) | payer MEDICARE, SELFPAY ==
--- OUTSIDE RECORDS SUMMARY | 2024-04-18 07:03 | XMS_ITS | Referral Summary ---
Author Organization [facility] Address [address] [facility] [place] [address] Care Team Providers Care Ball Sorter Name Role Phone Unavailable Primary Care Provider Unavailabl e Source Comments [facility],non-owned Affiliates and Associated Physician Practices is amultiple site organization consisting of ambulatory clinics and hospital sitesin [place], [place], [place] and [place]. This disclosure is being madepursuant to the Care Everywhere program and may not contain all information available regarding this patient. Last updated 17.[facility] [employer] Social History Tobacco Use Types Packs/Day Years Used Date Smoking Tobacco: Never Assessed Sex and Gender Information Value Date Recorded Sex Assigned at Not on file Gender Identity Not on file Sexual Orientation Not on file Plan of Treatment Not on file RAY ESPINO Personal/Family [address] [place] [address] RAY ESPINO Personal/Family [address] [place] [address] RAY ESPINO Personal/Family [address] [place] [address]
--- OUTSIDE RECORDS SUMMARY | 2024-04-18 07:03 | XMS_ITS | Encounter Summary ---
Author Organization [facility] Address [address] [facility] [place] [address] Care Team Providers Care Water Mechanic Name Role Phone Unavailable Primary Care Provider Unavailabl e Encounter Details Date Type Department Care Team (Late st Contact Info) Description 12/30/2019 Lab Requisition [facility] DermPath Lab [address] [place] [id number] Jessika Syed MD [address] [place] [address] Social History Tobacco Use Types Packs/Day Years Used Date Smoking Tobacco: Never Assessed Sex and Gender Information Value Date Recorded Sex Assigned at Not on file Gender Identity Not on file Sexual Orientation Not on file documented as of this encounter Plan of Treatment Not on file documented as of this encounter Procedures Procedure Name Priority Date/Time Associated Diagnosis Comments DERMATOPATHOLOGY Routine 12/29/2019 12:0 0 AM SPECIFICATION CONSULTANT documented in this encounter Results * DERMATOPATHOLOGY (12/29/2019 12:00 AM SPECIFICATION CONSULTANT) Case Report Dermatopathology Report Case: [id number] Authorizing Provider: Jessika Syed MD Collected: 12/29/2019 12:00 AM Ordering Location: [facility] DermPath Lab Received: 12/30/2019 09:21 AM Pathologist: Sivan Burgos MD Specimen: Skin, left chest 0 12:18 PM SPECIFICATION CONSULTANT DERMATOPATHOLOGY LABORATORY Final Diagnosis Specimen A. SKIN, left chest: DERMAL SCAR RESIDUAL BASAL CELL CARCINOMA NOT IDENTIFIED (L90.5) 0 12:18 PM SPECIFICATION CONSULTANT DERMATOPATHOLOGY LABORATORY Clinical History R/O BCC, biopsy proven. 0 12:18 PM SPECIFICATION CONSULTANT DERMATOPATHOLOGY LABORATORY Gross Description Specimen A: Received is one formalin filled container labeled with the patient's name and designated left chest.The specimen consists of an ellipse measuring [id number] and is oriented with the notch at the 12 o'clock position labeled on the requisition as superior. The epidermal surface consists of a centrally located 12x6mm previous biopsy site. The 12 to 6 o'clock margin is inked green. The 6 o'clock to 12 o'clock margin is inked black. The 12 o'clock tip is submitted in cassette 1. The 6 o'clock tip is submitted in cassette 2. The remainder of the ellipse is serially sectioned and submitted in cassettes 3-4. Jar 0. 0 12:18 PM [facility] DERMATOPATHOLOGY LABORATORY Microscopic Description Specimen A. SKIN, left chest: There are fibroblasts and collagen bundles oriented parallel to the skin surface. There are elongated blood vessels, some of which are oriented perpendicular to the skin surface. No basal cell carcinoma is identified. 0 12:18 PM [facility] DERMATOPATHOLOGY LABORATORY Disclaimer An external and internal positive and negative controls are appropriate for the histochemical, immunohistochemical and immunofluorescence stain(s) in this case (if any), except where stated explicitly. The performance characteristics of the stain(s) cited in this report were developed and its performance characteristic determined by the Dermatopathology Laboratory at [facility], directed by Dr. Jose Olivo. These tests need not be, and therefore are not, approved by the [place] Food and Drug Administration. The tests are used for clinical purposes. Billing Codes Specimen Charges Stain Charges 07450 1 0 12:18 PM [facility] DERMATOPATHOLOGY LABORATORY Embedded Images 0 12:18 PM [facility] DERMATOPATHOLOGY LABORATORY Pathology/Cytolog y TISSUE SPECIMEN FROM SKIN / Unknown 12/29/2019 12/30/2019 9:21 AM SPECIFICATION CONSULTANT Jessika Syed MD LAB - PATHOLOGY/CYTO LOGY ORDERABLES DERMATOPATHOLOGY LABORATORY [facility] - Department of Dermatology [address], [address] [phone] documented in this encounter Visit Diagnoses Not on filedocumented in this encounter
--- OUTSIDE RECORDS SUMMARY | 2024-04-18 07:03 | XMS_ITS | Clinical Summary ---
Author Organization [facility] Address [address] [place] [address] Care Team Providers Care Data Services Developer Name Role Phone Unavailable Primary Care Provider Unavailabl e Source Comments [facility],non-owned Affiliates and Associated Physician Practices is amultiple site organization consisting of ambulatory clinics and hospital sitesin [place], [place], [place] and [place]. This disclosure is being madepursuant to the Care Everywhere program and may not contain all information available regarding this patient. Last updated 17.[facility] [employer] Social History Tobacco Use Types Packs/Day Years Used Date Smoking Tobacco: Never Assessed Sex and Gender Information Value Date Recorded Sex Assigned at Not on file Gender Identity Not on file Sexual Orientation Not on file Plan of Treatment Health Maintenance Due Date Last Done Comments COLOGUARD (AGES 45-75) - COL ON CA SCREENING 1954 COLON MONITORING 1954 COLONOSCOPY - COLON CA SCREENING 1954 CT COLONOGRAPHY - COLON CA SCREENING 1954 Colorectal Cancer Screening 1954 FIT - COLON CA SCREENING 1954 FLEX SIG - COLON CA SCREENING 1954 LIPID TESTING 1954 MEDICARE AWV 12 MONTHS 1954 HEPATITIS C SCREENING 05/12/1972 DTAP/TDAP/TD VACCINES (1 - Tdap) 1973 PNEUMOCOCCAL VACCINE 50+ (1 of 1 - PCV) 2004 ZOSTER VACCINE (1 of 2) 2004 COVID-19 VACCINE ( - 2023-2 5 season) 2023 INFLUENZA VACCINE (#1) 2023 DEPRESSION SCREENING 02/13/2024 Respiratory Syncytial Virus (RSV) Vaccine Pt: or over 60 yrs (1 - 1-dose 75+ series) 2029 HEPATITIS B VACCINE Aged Out No longe r eligible based on patient's age to complete this topic HIB VACCINE Aged Out No longer eligi ble based on patient's age to complete this topic HPV VACCINE Aged Out No longer eligi ble based on patient's age to complete this topic MENINGOCOCCAL (Group B) VACCINE Aged Out No longer eligible based on patient's age to complete this topic MENINGOCOCCAL VACCINE Aged Out No donaldo isabell eligible based on patient's age to complete this topic RAY ESPINO Personal/Family [address] [place] [address] RAY ESPINO Personal/Family [address] [place] [address] RAY ESPINO Personal/[place] [address] [place] [address]
--- OUTSIDE RECORDS SUMMARY | 2024-04-18 07:03 | XMS_ITS | Encounter Summary ---
Author Organization [facility] Address [address] [place] [address] Care Team Providers Care Ese Teacher Name Role Phone Unavailable Primary Care Provider Unavailabl e Encounter Details Date Type Department Care Team (Late st Contact Info) Description 01/09/2023 Lab Requisition [facility] - DermPath Lab [address] [facility] [place] [address] Katerin Chavis MD [address] [facility] [address] [place] [address] Social History Tobacco Use Types Packs/Day Years Used Date Smoking Tobacco: Never Assessed Sex and Gender Information Value Date Recorded Sex Assigned at Not on file Gender Identity Not on file Sexual Orientation Not on file documented as of this encounter Plan of Treatment Not on file documented as of this encounter Procedures Procedure Name Priority Date/Time Associated Diagnosis Comments DERMATOPATHOLOGY Routine 01/09/2023 8:49 AM SKEET OPERATOR documented in this encounter Results * DERMATOPATHOLOGY (01/09/2023 8:49 AM SKEET OPERATOR) Case Report Dermatopathology Report Case: [id number] Authorizing Provider: Katerin Chavis MD Collected: 01/09/2023 08:49 AM Ordering Location: [facility] DermPath Lab Received: 01/10/2023 02:46 PM Pathologist: Deandra Bustillo MD Specimen: Skin, left cheek 3 2:27 PM SKEET OPERATOR DERMATOPATHOLOGY LABORATORY Final Diagnosis Specimen A. SKIN, left cheek: BASAL CELL CARCINOMA, NODULAR TYPE (C44.319) 3 2:27 PM SKEET OPERATOR DERMATOPATHOLOGY LABORATORY Clinical History /O BCC, SCC, [place] Papule 3 2:27 PM SKEET OPERATOR DERMATOPATHOLOGY LABORATORY Gross Description Specimen A: Received is one formalin filled container labeled with the patient's name and designated left cheek. The specimen consists of a shave biopsy measuring 4x3x1 mm. Jar 0. 3 2:27 PM [facility] DERMATOPATHOLOGY LABORATORY Microscopic Description Specimen A. SKIN, left cheek: Within the dermis there are aggregates of basaloid cells with a high nuclear to cytoplasmic ratio and peripheral palisading. 3 2:27 PM [facility] DERMATOPATHOLOGY LABORATORY Disclaimer An external and internal positive and negative controls are appropriate for the histochemical, immunohistochemical and immunofluorescence stain(s) in this case (if any), except where stated explicitly. The performance characteristics of the stain(s) cited in this report were developed and its performance characteristic determined by the Dermatopathology Laboratory at [facility], directed by Dr. Jose Olivo. These tests need not be, and therefore are not, approved by the [place] Food and Drug Administration. The tests are used for clinical purposes. Billing Codes Specimen Charges Stain Charges 76723 1 3 2:27 PM [facility] DERMATOPATHOLOGY LABORATORY Embedded Images 3 2:27 PM [facility] DERMATOPATHOLOGY LABORATORY Pathology/Cytolo gy TISSUE SPECIMEN FROM SKIN / Unknown 01/09/2023 8:49 AM SKEET OPERATOR 01/10/2023 2:46 PM SKEET OPERATOR Katerin Chavis MD LAB - PATHOLOGY/CYTO LOGY ORDERABLES DERMATOPATHOLOGY LABORATORY [facility] - Department of Dermatology [address], [address] [phone] documented in this encounter Visit Diagnoses Not on filedocumented in this encounter
--- OUTSIDE RECORDS SUMMARY | 2024-04-18 07:03 | XMS_ITS | Encounter Summary ---
Author Organization [facility] Address [address] [place] [address] Care Team Providers Care Retort Kiln Burner Name Role Phone Chema Perez MD Primary Care Provider [phone] Encounter Details Date Type Department Care Team (Late st Contact Info) Description 07/05/2023 Hospital Orders Only [facility] Interventional Radiology [place], [place] [id number] Niranjan Silver MD [address] [place] [phone] Social History Tobacco Use Types Packs/Day Years Used Date Smoking Tobacco: Never Smokeless Tobacco: Never Alcohol Use Standard Drinks/Week Comments Yes 0 (1 standard drink = 0.6 oz pur e alcohol) Sex and Gender Information Value Date Recorded Sex Assigned at Not on file Legal Sex Male 3:49 PM CDT Gender Identity Not on file Sexual Orientation Not on file documented as of this encounter Plan of Treatment Not on file documented as of this encounter Visit Diagnoses Not on filedocumented in this encounter Care Teams Retort Kiln Burner Relationship Specialty Start Date End Date Chema Perez MD [address] [place] [address] PCP - General FAMILY PRACTICE 06/27/23 documented as of this encounter
--- OUTSIDE RECORDS SUMMARY | 2024-04-18 07:03 | XMS_ITS | Encounter Summary ---
Author Organization [facility] Address [address] [facility] [place] [address] Care Team Providers Care Natural Sciences Professor Name Role Phone Unavailable Primary Care Provider Unavailabl e Encounter Details Date Type Department Care Team (Late st Contact Info) Description 11/05/2019 Lab Requisition [facility] DermPath Lab [address] [facility] [place] [phone] Almita Morataya MD [address] [facility] [address] [place] [address] Social History Tobacco Use Types Packs/Day Years Used Date Smoking Tobacco: Never Assessed Sex and Gender Information Value Date Recorded Sex Assigned at Not on file Gender Identity Not on file Sexual Orientation Not on file documented as of this encounter Plan of Treatment Not on file documented as of this encounter Procedures Procedure Name Priority Date/Time Associated Diagnosis Comments DERMATOPATHOLOGY Routine 11/04/2019 12:0 0 AM CDT documented in this encounter Results * DERMATOPATHOLOGY (11/04/2019 12:00 AM CDT) Case Report Dermatopathology Report Case: [id number] Authorizing Provider: Almita Morataya MD Collected: 11/04/2019 12:00 AM Ordering Location: [facility] DermPath Lab Received: 11/05/2019 01:46 PM Pathologist: Madison Bustillo MD Specimens: A) - Skin, central chest B) - Skin, left chest 0 4:20 PM CDT DERMATOPATHOLOGY LABORATORY Final Diagnosis Specimen A. SKIN, central chest: SOLAR LENTIGO (L81.4) Specimen B. SKIN, left chest: BASAL CELL CARCINOMA, SUPERFICIAL MULTIFOCAL (C44.519) ACTINIC KERATOSIS (L57.0) (see microscopic description) 0 4:20 PM CDT DERMATOPATHOLOGY LABORATORY Clinical History A: R/O melanoma vs lentigo, irregular color B: R/O BCC, painful 0 4:20 PM CDT DERMATOPATHOLOGY LABORATORY Gross Description Specimen A: Received is one formalin filled container labeled with the patient's name and designated central chest. The specimen consists of a shave biopsy measuring 8x7x1 mm. Jar 0. Specimen B: Received is one formalin filled container labeled with the patient's name and designated left chest. The specimen consists of a shave biopsy measuring 7x3x1 mm. Jar 0. 0 4:20 PM CDT DERMATOPATHOLOGY LABORATORY Microscopic Description Specimen A. SKIN, central chest: There is orthokeratosis. There is a slight increase in epidermal thickness with lentiginous buds of hyperpigmented keratinocytes. The number of melanocytes is only mildly increased. In the dermis, there is basophilic degeneration of elastic fibers. Specimen B. SKIN, left chest: Attached to the undersurface of the epidermis, there are focal aggregates of basaloid cells with a high nuclear to cytoplasmic ratio and peripheral palisading, highlighted by BerEp4 immunostain. There is focal parakeratosis. The lower half of the epidermis shows disorderly maturation of keratinocytes with nuclear pleomorphism. Additional deeper sections were obtained and reviewed. 0 4:20 PM CDT DERMATOPATHOLOGY LABORATORY Disclaimer An external and internal positive and negative controls are appropriate for the histochemical, immunohistochemical and immunofluorescence stain(s) in this case (if any), except where stated explicitly. The performance characteristics of the stain(s) cited in this report were developed and its performance characteristic determined by the Dermatopathology Laboratory at [facility], directed by Dr. Jose Olivo. These tests need not be, and therefore are not, approved by the [place] Food and Drug Administration. The tests are used for clinical purposes. Billing Codes Specimen Charges Stain Charges 05823 09757 1 1 65406 1 0 4:20 PM CDT DERMATOPATHOLOGY LABORATORY Embedded Images 0 4:20 PM CDT DERMATOPATHOLOGY LABORATORY Pathology/Cytology TISSUE SPECIMEN FROM SKIN / Unknown 11/04/2019 11/05/2019 1:46 PM CDT Miscellaneous samples (specimen) TISSUE SPECIMEN FROM SKIN / Unknown 11/04/2019 11/05/2019 1:46 PM CDT Almita Morataya MD LAB - PATHOLOGY/CYT OLOGY ORDERABLES DERMATOPATHOLOGY LABORATORY [facility] - Department of Dermatology [facility] Medicine [address] [place] [address], [address] [phone] documented in this encounter Visit Diagnoses Not on filedocumented in this encounter
--- OUTSIDE RECORDS SUMMARY | 2024-04-18 07:03 | XMS_ITS | Data Portability ---
Author Organization [facility], Main Office Address [address] [place] [address] Assessment Encounter Date Assessment Date Assessment LastModified by Organization Details LastModified Time 10/11/2022 10/11/2022 Assessment: Mod OSAHS, AHI = 27 PLMD Hypoventilation Plan: The following were reviewed and explained to the patient: primary care/referral note [facility] home sleep study 10/04/22 AHI = 27, supine AHI = 71 General information on sleep disordered breathing, evaluation of sleep disordered breathing, treatment with PAP therapy, and living with PAP therapy were covered. PSG is medically necessary to determine the management of sleep apnea. We discussed with the patient the impact of weight on: Sleep disordered breathing DM KAMLESH We discussed with the patient the benefit of PAP therapy on: Sleep disordered breathing Atrial fibrillation DM KAMLESH ED Educated the patient on sleep hygiene measures. Relaxing rituals to rest easy, understanding foods with positive and negative impact on sleep, creating a peaceful sleep environment, timing of exercise, using herbal sleep aids, and practicing sleep-friendly meditation were covered. To determine how much sleep is needed, the patient will assess where he falls on the spectrum, examine what lifestyle factors such as work schedules and stress are affecting the quality and quantity of sleep. In general, adults need 7-9 hours of sleep. Educated the patient regarding foods that promote sleep. These include but are not limited to cherries, bananas, toast, oatmeal, and warm milk. Educated the patient regarding foods and drinks to avoid before bedtime. These include but are not limited to aged cheese, chocolate, spicy foods, tomato-based sauces, soy, ginseng tea and processed meat. Advocated influenza vaccination annually and pneumonia vaccination GINO. Advocated weight loss through diet and exercise. Patient's ideal body weight according to height and gender is up to 185 lbs. Encouraged patient to adjust caloric intake to maintain/achieve ideal body weight, emphasizing on fruits, vegetables, whole grains, and fat-free or low-fat products. These include lean meats, poultry, fish, beans, eggs, and nuts and foods that are low in saturated fats, trans-fats, cholesterol, salt (sodium), and glycemic index. Stressed the importance of regular exercise up to the patient's capacity limits. In this case, we recommend 20 min daily walking, 2 days a week of resistance training. Patient to monitor BP daily and bring records to PCP for further management. Follow-up: 1 week after titration sleep study Not available 10/11/2022 13:12:49 02/15/2023 02/15/2023 Assessment: Mod OSAHS, AHI = 27 PLMD Plan: The following were reviewed and explained to the patient: [facility] home sleep study 10/04/22 AHI = 27, supine AHI = 71 [facility] titration sleep study 01/15/23 ResMed medium AirFit F30 full face mask @ 12 cmH2O, PLMI = 42 Non-pharmacologi c therapy options for periodic limb movement disorder include avoidance of aggravating drugs and substances, mental alerting activities, short daily hemodialysis for patients in renal failure, exercise, leg massage, stretching calf muscles, use of a weighted blanket and applied heat. Patient will cut down on alcohol consumption and caffeine intake. We will check BUN, Creatinine, Vitamin E, Vitamin B12, RBC folate, Iron, TIBC, Ferritin, ESR, Magnesium, Hgb and Hct levels. Educated the patient on problems and solutions associated with positive airway pressure (PAP) use. Difficulty tolerating pressure, mask leaks, intolerance of interface, nasal congestion, claustrophobic response, dry mouth, and unintentional mask removal during sleep were covered. ResMed Air Sense 11 auto set unit with heated humidifier, supplies, ResMed medium AirFit F30 full face mask @ 12 cmH2O ordered. Further titration will be based on clinical response. Provided the patient with a list of local home care stores where positive airway pressure (PAP) units, accoutrement, and services are available. Home care store selection is based on patient's insurance carrier. Patient will setup an appointment with [facility] for supplies and pressure adjustments. A major predictor of success with use of PAP is follow-up with both the respiratory supplier and the treating physician. The respiratory supplier optimally will follow-up within two weeks after starting use while the treating physician optimally will follow-up within 90 days after starting therapy to assess adherence and effectiveness of treatment. The download results can show the treating physician information about adherence to treatment, residual AHI while on treatment and presence of large mask leakage. This information is especially helpful if the patient has residual sleepiness despite treatment. General information on sleep disordered breathing, evaluation of sleep disordered breathing, treatment with PAP therapy, and living with PAP therapy were covered. We discussed with the patient the impact of weight on: Sleep disordered breathing DM KAMLESH We discussed with the patient the benefit of PAP therapy on: Sleep disordered breathing Atrial fibrillation DM KAMLESH ED Educated the patient on sleep hygiene measures. Relaxing rituals to rest easy, understanding foods with positive and negative impact on sleep, creating a peaceful sleep environment, timing of exercise, using herbal sleep aids, and practicing sleep-friendly meditation were covered. To determine how much sleep is needed, the patient will assess where he falls on the spectrum, examine what lifestyle factors such as work schedules and stress are affecting the quality and quantity of sleep. In general, adults need 7-9 hours of sleep. Educated the patient regarding foods that promote sleep. These include but are not limited to cherries, bananas, toast, oatmeal, and warm milk. Educated the patient regarding foods and drinks to avoid before bedtime. These include but are not limited to aged cheese, chocolate, spicy foods, tomato-based sauces, soy, ginseng tea and processed meat. Advocated influenza vaccination annually and pneumonia vaccination GINO. Advocated weight loss through diet and exercise. Patient's ideal body weight according to height and gender is up to 185 lbs. Encouraged patient to adjust caloric intake to maintain/achieve ideal body weight, emphasizing on fruits, vegetables, whole grains, and fat-free or low-fat products. These include lean meats, poultry, fish, beans, eggs, and nuts and foods that are low in saturated fats, trans-fats, cholesterol, salt (sodium), and glycemic index. Stressed the importance of regular exercise up to the patient's capacity limits. In this case, we recommend 20 min daily walking, 2 days a week of resistance training. Patient to monitor BP daily and bring records to PCP for further management. Follow-up: 3 months, May 2023 Not available 02/15/2023 14:58:19 07/04/2023 07/04/2023 Assessment: Mod OSAHS, AHI = 27 Iron deficiency anemia Plan: The following were reviewed and explained to the patient: [facility] home sleep study 10/04/22 AHI = 27, supine AHI = 71 [facility] titration sleep study 01/15/23 ResMed medium AirFit F30 full face mask @ 12 cmH2O, PLMI = 42 Ferritin 03/09/23 73 ng/mL Hgb 03/09/23 13.3 gm% Hct 03/09/23 40.6% B12 03/09/23 >1000 pg/mL Non-pharmacologi c therapy options for periodic limb movement disorder include avoidance of aggravating drugs and substances, mental alerting activities, short daily hemodialysis for patients in renal failure, exercise, leg massage, stretching calf muscles, use of a weighted blanket and applied heat. Patient will cut down on alcohol consumption and caffeine intake. BUN, Creatinine, Vitamin E, RBC folate, Iron, TIBC, ESR, Magnesium, Hgb and Hct levels are within normal limits. Patient will take FeSO4 325 mg + Vit C 500 mg daily to keep the ferritin > 75 ng/ml. Discontinue B12. Check ferritin and B12 one week before return. We will hold off on dopaminergic therapy for now. PAP compliance downloaded and interpreted x 20 minutes. Data reviewed and explained to the patient. Average apnea/hypopnea index (AHI) is 2.3 Patient used PAP > 4 hours 86% of the time. PAP is set at 12 cmH2O. PAP will remain at 12 cmH2O. Keep ramp start @ 6 cmH2O. Keep ramp duration @ 15 minutes. Change EPR from off to +3. Keep humidifier level @ 6. Keep tube temperature @ 82 F. Oxygen supplementation: none Patient is benefiting from PAP therapy. Encouraged patient to maintain PAP use more than 70% of the time. Statement of PAP use and benefits will be sent to the home care store. Educated the patient on problems and solutions associated with positive airway pressure (PAP) use. Difficulty tolerating pressure, mask leaks, intolerance of interface, nasal congestion, claustrophobic response, dry mouth, and unintentional mask removal during sleep were covered. Provided the patient with a list of local home care stores where positive airway pressure (PAP) units, accoutrement, and services are available. Home care store selection is based on patient's insurance carrier. Patient will setup an appointment with [facility] for supplies and pressure adjustments. A major predictor of success with use of PAP is follow-up with both the respiratory supplier and the treating physician. The respiratory supplier optimally will follow-up within two weeks after starting use while the treating physician optimally will follow-up within 90 days after starting therapy to assess adherence and effectiveness of treatment. The download results can show the treating physician information about adherence to treatment, residual AHI while on treatment and presence of large mask leakage. This information is especially helpful if the patient has residual sleepiness despite treatment. General information on sleep disordered breathing, evaluation of sleep disordered breathing, treatment with PAP therapy, and living with PAP therapy were covered. We discussed with the patient the impact of weight on: Sleep disordered breathing DM KAMLESH We discussed with the patient the benefit of PAP therapy on: Sleep disordered breathing Atrial fibrillation DM KAMLESH ED Educated the patient on sleep hygiene measures. Relaxing rituals to rest easy, understanding foods with positive and negative impact on sleep, creating a peaceful sleep environment, timing of exercise, using herbal sleep aids, and practicing sleep-friendly meditation were covered. To determine how much sleep is needed, the patient will assess where he falls on the spectrum, examine what lifestyle factors such as work schedules and stress are affecting the quality and quantity of sleep. In general, adults need 7-9 hours of sleep. Educated the patient regarding foods that promote sleep. These include but are not limited to cherries, bananas, toast, oatmeal, and warm milk. Educated the patient regarding foods and drinks to avoid before bedtime. These include but are not limited to aged cheese, chocolate, spicy foods, tomato-based sauces, soy, ginseng tea and processed meat. Advocated influenza vaccination annually and pneumonia vaccination GINO. Advocated weight loss through diet and exercise. Patient's ideal body weight according to height and gender is up to 185 lbs. Encouraged patient to adjust caloric intake to maintain/achieve ideal body weight, emphasizing on fruits, vegetables, whole grains, and fat-free or low-fat products. These include lean meats, poultry, fish, beans, eggs, and nuts and foods that are low in saturated fats, trans-fats, cholesterol, salt (sodium), and glycemic index. Stressed the importance of regular exercise up to the patient's capacity limits. In this case, we recommend 20 min daily walking, 2 days a week of resistance training. Patient to monitor BP daily and bring records to PCP for further management. Follow-up: 3 months, September 2023 Not available 07/04/2023 09:53:33 11/05/2023 11/05/2023 Assessment: Mod OSAHS, AHI = 27 Iron deficiency anemia Plan: The following were reviewed and explained to the patient: [facility] home sleep study 10/04/22 AHI = 27, supine AHI = 71 [facility] titration sleep study 01/15/23 ResMed medium AirFit F30 full face mask @ 12 cmH2O, PLMI = 42 Ferritin 03/09/23 73 ng/mL Ferritin 10/30/23 433 ng/mL Hgb 03/09/23 13.3 gm% Hgb 10/30/23 9.1 gm% Hct 03/09/23 40.6% Hct 10/30/23 26.2% B12 03/09/23 >1000 pg/mL Non-pharmacologi c therapy options for periodic limb movement disorder include avoidance of aggravating drugs and substances, mental alerting activities, short daily hemodialysis for patients in renal failure, exercise, leg massage, stretching calf muscles, use of a weighted blanket and applied heat. Patient will cut down on alcohol consumption and caffeine intake. BUN, Creatinine, Vitamin E, RBC folate, Iron, TIBC, ESR, Magnesium, Hgb and Hct levels are within normal limits. Patient will take FeSO4 325 mg + Vit C 500 mg daily to keep the ferritin > 75 ng/ml. Discontinue B12. Check ferritin and B12 one week before return. We will hold off on dopaminergic therapy for now. PAP compliance downloaded and interpreted x 20 minutes. Data reviewed and explained to the patient. Average apnea/hypopnea index (AHI) is 6.3. Patient used PAP > 4 hours 75% of the time. PAP is set at 12 cmH2O. PAP will be reset at 6-12 cmH2O. Turn ramp off. Keep EPR +3. Increase humidifier level from 6 to 7. Keep tube temperature @ 78 F. Oxygen supplementation: none Patient is benefiting from PAP therapy. Encouraged patient to maintain PAP use more than 70% of the time. Statement of PAP use and benefits will be sent to the home care store. Educated the patient on problems and solutions associated with positive airway pressure (PAP) use. Difficulty tolerating pressure, mask leaks, intolerance of interface, nasal congestion, claustrophobic response, dry mouth, and unintentional mask removal during sleep were covered. Provided the patient with a list of local home care stores where positive airway pressure (PAP) units, accoutrement, and services are available. Home care store selection is based on patient's insurance carrier. Patient will setup an appointment with [facility] for supplies and pressure adjustments. A major predictor of success with use of PAP is follow-up with both the respiratory supplier and the treating physician. The respiratory supplier optimally will follow-up within two weeks after starting use while the treating physician optimally will follow-up within 90 days after starting therapy to assess adherence and effectiveness of treatment. The download results can show the treating physician information about adherence to treatment, residual AHI while on treatment and presence of large mask leakage. This information is especially helpful if the patient has residual sleepiness despite treatment. General information on sleep disordered breathing, evaluation of sleep disordered breathing, treatment with PAP therapy, and living with PAP therapy were covered. We discussed with the patient the impact of weight on: Sleep disordered breathing DM KAMLESH We discussed with the patient the benefit of PAP therapy on: Sleep disordered breathing Atrial fibrillation DM KAMLESH ED Educated the patient on sleep hygiene measures. Relaxing rituals to rest easy, understanding foods with positive and negative impact on sleep, creating a peaceful sleep environment, timing of exercise, using herbal sleep aids, and practicing sleep-friendly meditation were covered. To determine how much sleep is needed, the patient will assess where he falls on the spectrum, examine what lifestyle factors such as work schedules and stress are affecting the quality and quantity of sleep. In general, adults need 7-9 hours of sleep. Educated the patient regarding foods that promote sleep. These include but are not limited to cherries, bananas, toast, oatmeal, and warm milk. Educated the patient regarding foods and drinks to avoid before bedtime. These include but are not limited to aged cheese, chocolate, spicy foods, tomato-based sauces, soy, ginseng tea and processed meat. Advocated influenza vaccination annually and pneumonia vaccination GINO. Encouraged patient to adjust caloric intake to maintain/achieve ideal body weight, emphasizing on fruits, vegetables, whole grains, and fat-free or low-fat products. These include lean meats, poultry, fish, beans, eggs, and nuts and foods that are low in saturated fats, trans-fats, cholesterol, salt (sodium), and glycemic index. Stressed the importance of regular exercise up to the patient's capacity limits. In this case, we recommend 20 min daily walking, 2 days a week of resistance training. Patient to monitor BP daily and bring records to PCP for further management. Follow-up: 6 months, April 2024 Not available 11/05/2023 10:36:14 Plan of Treatment Reminders Order Date Submit Date Provider Last Modified By Organization Details Last Modified Time Details Appointments None recorded. Lab ferritin, serum or plasma 2023 025 [facility] (Lab), [address] [place], [address], 5 13:57:23 hemoglobin + hematocrit , blood 2023 025 [facility] (Lab), [address] [place], [address], 5 13:57:24 ferritin, serum or plasma 2023 024 2 [facility] (Lab), [address] [place], [address], 4 10:55:11 hemoglobin + hematocrit , blood 2023 024 [facility] [address] [place], [address], 4 16:51:44 iron + TIBC + ferritin, serum 2023 024 [email or web address] 5 [facility] (Lab), [address] [place], [address], 4 14:34:50 folate, RBC 2023 024 [email or web address] 5 [facility] (Lab), [address] [place], [address], 4 14:34:50 vitamin B12, serum 2023 024 RUSSELL [facility] (Lab), [address] [place], [address], 4 10:07:13 ESR (erythrocy te sedimentat ion rate), blood 2023 024 [email or web address] 5 [facility] (Lab), [address] [place], [address], 4 14:34:50 hemoglobin + hematocrit , blood 2023 024 [email or web address] 5 [facility] (Lab), [address] [place], [address], 4 14:34:50 bun (blood urea nitrogen), serum or plasma 2023 024 [email or web address] 5 [facility] (Lab), [address] [place], [address], 4 14:34:51 creatinine , serum or plasma 2023 024 [email or web address] 5 [facility] (Lab), [address] [place], [address], 4 14:34:51 magnesium, serum or plasma 2023 024 [email or web address] 5 [facility] (Lab), [address] [place], [address], 4 14:34:51 vitamin E, serum 2023 024 [email or web address] 5 [facility] (Lab), [address] [place], [address], 4 14:34:51 Referral None recorded. Procedures None recorded. Surgeries None recorded. Imaging polysomnog brigitte, titration study - no auth required 2022 023 5 [facility] [place] ([facility]), [address] [place], [address], 14:57:14 Medication Orders ferrous sulfate 325 mg (65 mg iron) tablet 2023 024 [place] #[id number], [address] [place] [address], [id number], 4 10:33:32 Vitamin C 500 mg tablet 2023 024 [place] [facility] #[id number], [address] [place] [address], [id number], 4 10:33:28 ferrous sulfate 325 mg (65 mg iron) tablet [address] [id number], [address] [place] [address], [id number], 4 09:46:10 Vitamin C 500 mg tablet [email or web address] [facility] #64577, [address] [place] [address], [id number], 4 10:01:57 Patient TargetsNo targets recorded. Patient InstructionsNo instructions recorded. Reason for Referral None Reported. Results Created Date Observation Date Name Description Value Unit Range Abnormal Flag Note LastModifiedBy Organization Detail LastModifiedTime 10/07/1910/04/2022 home sleep study No observ ation record ed. [facility] Not Available 2022 12:17:42 01/18/2001/15/2023 polys omnog brigitte, titra tion study No observ ation record ed. BARCODE [facility] [address] [place], [address], 01/17/2023 15:10:19 Result Notes None recorded. Problems Name Problem SNOMED Code Status Onset Date Resolution Date Notes Provider Name and Address Organization Details Recorded Time Obstructive sleep apnea syndrome 14221554 Active 2022 Rex cMdonough MD [address], [address], [place], [address], [employer] 3 12:07:45 Periodic limb movement disorder 643843067 Active 2023 Rex Mcdonough MD [address], [address], [place], [address], [employer] 4 14:33:29 Iron deficiency 89474033 Active 2023 Rex Mcdonough MD [address], [address], [place], [address], [employer] 4 09:08:30 Vitamin B12 deficiency (non anemic) 18693869 Active 2023 Rex Mcdonough MD [address], [place], [address], [employer] 4 09:09:56 Notes:Medical History: Postn sg drip 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 Procedures Surgical History Date Name Laterality Status Provider Name and Address Organization Details Recorded Time aortoplasty completed Richelle Carolina MA [employer] 10/11/2022 12:27:36 repair of multiple tears of rotator cuff of right shoulder completed Richelle Carolina MA [employer] 10/11/2022 12:27:45 repair of multiple tears of rotator cuff of right shoulder completed Richelle Carolina MA [employer] 10/11/2022 12:27:46 repair of joint of right knee completed Richelle Carolina MA [employer] 10/11/2022 12:27:56 repair of joint of right knee completed SOTERO Baxter Amanda [facility] 10/11/2022 12:27:58 repair of joint of right knee completed SOTERO Baxter Amanda [facility] 10/11/2022 12:27:59 repair of joint of right knee completed SOTERO Baxter [facility] 10/11/2022 12:28:00 repair of joint of right knee completed SOTERO Baxter Amanda [facility] 10/11/2022 12:28:01 Appendectomy completed SOTERO Baxter [facility] 10/11/2022 12:28:14 operation on testis completed SOTERO Baxter [facility] 10/11/2022 12:28:39 repair of joint of left knee completed SOTERO Baxter Amanda [facility] 10/11/2022 12:28:47 repair of multiple tears of rotator cuff of left shoulder completed SOTERO Baxter [facility] 10/11/2022 12:29:05 total replacement of left knee joint completed SOTERO Baxter [facility] 02/15/2023 14:16:25 Imaging Results Imaging Date Name Status LastModified by Organiz ation Details LastModified Time 10/04/2022 home sleep study completed [facility] Information not available 10/06/2022 12:17:42 01/15/2023 polysomnogram, titration study completed [facility] [address] [place], [address], 01/17/2023 15:10:19 Procedure Notes None recorded. Medical Equipment None Reported. Allergies No known drug allergies Medications Name Sig Start Date Stop Date Status Note LastModified by Organization Details LastModified Time compound drug 03/23 completed Not Available Not Available Not Available amoxicillin 500 mg capsule 11/04 completed Not Available Not Available Not Available silver sulfadiazin e 1 % topical cream APPLY TOPICALLY TO THE AFFECTED AREA THREE TIMES DAILY 03/23 completed Not Available Not Available Not Available metformin 500 mg tablet active Not Available Not Available Not Available hydrocortis one-pramoxi ne 2.5 %-1 % rectal cream INSERT RECTALLY TWICE DAILY 03/23 completed Not Available Not Available Not Available Vitamin C 500 mg tablet TAKE 1 TABLET BY MOUTH EVERY WEEK active Not Available Not Available No t Available azithromyci n 250 mg tablet TAKE 2 TABLETS BY MOUTH FOR 1 DAY THEN TAKE 1 TABLET BY MOUTH DAILY FOR 4 DAYS 07/03 completed Not Available Not Available Not Available metoprolol succinate ER 50 mg tablet,exte nded release 24 hr active Not Available Not Available Not Available valacyclovi r 1 gram tablet 10/11 completed Not Available Not Available Not Available hydrocodone 5 mg-acetamin ophen 325 mg tablet TAKE 1 TABLET BY MOUTH EVERY 4 HOURS NEEDED FOR PAIN 03/23 completed Not Available Not Available Not Available ondansetron HCl 8 mg tablet TAKE 1 TABLET BY MOUTH EVERY 8 HOURS NEEDED FOR NAUSEA OR VOMITING. USE IF PROCHLORP ERAZINE DOES NOT STOP NAUSEA. 03/23 completed Not Available Not Available Not Available lisinopril 20 mg tablet active Not Available Not Available Not Available prochlorper azine maleate 10 mg tablet 03/23 completed Not Available Not Available Not Available hydrocodone 10 mg-acetamin ophen 325 mg tablet 02/15 completed Not Available Not Available Not Available tramadol 50 mg tablet 10/11 completed Not Available Not Available Not Available potassium chloride 20 mEq/15 mL oral liquid active Not Available Not Available Not Available warfarin 6 mg tablet 03/23 completed Not Available Not Available Not Available pantoprazol e 40 mg tablet,renny yed release active Not Available Not Available Not Available simvastatin 20 mg tablet active Not Available Not Available Not Available dexamethaso ne 4 mg tablet 03/23 completed Not Available Not Available Not Available warfarin 5 mg tablet TAKE 1 TABLET BY MOUTH 4 TIMES WEEKLY active Not Available Not Available No t Available flecainide 100 mg tablet TAKE 1 TABLET BY MOUTH TWICE DAILY STARTING 5 DAYS BEFORE PROCEDURE active Not Available Not Available No t Available magnesium citrate oral solution active Not Available Not Available Not Available fentanyl 25 mcg/hr transdermal patch APPLY 1 PATCH TOPICALLY TO THE SKIN EVERY 72 HOURS active Not Available Not Available No t Available oxycodone 5 mg tablet active Not Available Not Available No t Available enoxaparin 80 mg/0.8 mL subcutaneou s syringe active Not Available Not Available No t Available enoxaparin 100 mg/mL subcutaneou s syringe 02/15 completed Not Available Not Available Not Available FeroSul 325 mg (65 mg iron) tablet TAKE 1 TABLET BY MOUTH ONCE WEEKLY active Not Available Not Available No t Available Vitals Date Recorded Body weight Body temperature Heart rate Oxygen saturation Oxygen saturation in Arterial blood by Pulse oximetry Body mass index (BMI) Body height Systolic blood pressure Diastolic blood pressure Provider Name and Address Organization Details Last Updated DateTime 3 36166.1 8 g 98 [degF] 72 /min 98 % 98 % 25.9 kg/m2 180.34 cm 138 mm[Hg] 70 mm[Hg] Richelle Carolina MA [facility] 3 12:32:31 Date Recorded Heart rate Respiratory rate Provider N bridgette and Address Organization Details Last Updated DateTime 10/11/2022 72 /min 15 /min Rex Mcdonough MD [address] [employer] [address] [place] [employer], [address] [facility] 10/11/2022 13:11:46 Date Recorded Body height Body mass index (BMI) Body weight Body temperature Heart rate Oxygen saturation Oxygen saturation in Arterial blood by Pulse oximetry Systolic blood pressure Diastolic blood pressure Provider Name and Address Organization Details Last Updated DateTime 4 180.34 cm 25.4 kg/m2 59160.8 1 g 98 [degF] 87 /min 96 % 96 % 122 mm[Hg] 70 mm[Hg] Richelle Carolina MA [facility] [facility] 4 14:19:46 Date Recorded Heart rate Respiratory rate Provider N bridgette and Address Organization Details Last Updated DateTime 02/15/2023 87 /min 14 /min Rex Mcdonough MD [address] [place], [address] [employer] [facility] 02/15/2023 14:32:18 Date Recorded Body height Body mass index (BMI) Body weight Body temperature Oxygen saturation Oxygen saturation in Arterial blood by Pulse oximetry Heart rate Systolic blood pressure Diastolic blood pressure Provider Name and Address Organization Details Last Updated DateTime 4 180.34 cm 25.7 kg/m2 25186 g 97.1 [degF] 98 % 98 % 73 /min 120 mm[Hg] 72 mm[Hg] Marli Gar [facility] [employer] 4 09:20:51 Date Recorded Body height Body mass index (BMI) Body weight Body temperature Oxygen saturation Oxygen saturation in Arterial blood by Pulse oximetry Systolic blood pressure Diastolic blood pressure Provider Name and Address Organization Details Last Updated DateTime 180.34 cm 20.6 kg/m2 93004.6 7 g 97.5 [degF] 97 % 97 % 124 mm[Hg] 70 mm[Hg] Marli Gar [facility] [employer] 4 10:01:16 Date Recorded Heart rate Heart rate Respiratory rate Provider Name and Address Organization Details Last Updated DateTime 11/05/2023 65 /min 65 /min 15 /min Rex Mcdonough MD [address] [facility] [address], [place], [address], [employer] 11/05/2023 10:21:58 Social History Question Answer Notes LastModified by Organizat ion Details LastModified Time Tobacco Smoking Status Never Smoker Richelle Carolina MA null, [employer] 10/11/2022 12:22:55 What Is Your Level Of Alcohol Consumption? Moderate Information not available 10/11/2022 What Is Your Level Of Caffeine Consumption? Moderate Information not available 10/11/2022 In The 14 Days Before Symptom Onset, Have You Had Close Contact With A Laboratory-confir med COVID-19 While That Case Was Ill? No Information not available 10/11/2022 In The 14 Days Before Symptom Onset, Have You Had Close Contact With A Person Who Is Under Investigation For COVID-19 While That Person Was Ill? No Information not available 10/11/2022 What Type Of Diet Are You Following? REGULAR Low Sugar Information not available 10/11/2022 Do You Have An Electrostatic Air Filter? No Information not available 10/11/2022 Have You Been Exposed To Chemicals Or Toxins? Yes Information not available 10/11/2022 Do You Have A Humidifier? Yes Information not available 10/11/2022 Do You Have Moisture Problems In Your Home? No Information not available 10/11/2022 What Was The Date Of Your Most Recent Tobacco Screening? 02/15/2023 Information not available 02/15/2023 Do You Have Any Pets? Yes Information not available 10/11/2022 Do You Use Your Seat Belt Or Car Seat Routinely? Yes Information not available 10/11/2022 Do You Have Smoke And Carbon Monoxide Detectors In Your Home? Yes Information not available 10/11/2022 Are You Passively Exposed To Smoke? No Information no t available 10/11/2022 Do You Feel Stressed (tense, Restless, Nervous, Or Anxious, Or Unable To Sleep At Night)? SN6542-2 Information not available 10/11/2022 Do You Use Any Illicit Or Recreational Drugs? No Information not available 10/11/2022 Do You Use Sunscreen Routinely? Yes Information not available 10/11/2022 Have You Recently Traveled Abroad? No Information not available 10/11/2022 Do You Have Any Dietary Restrictions? No Information not available 10/11/2022 Do You Or Have You Ever Used Any Other Forms Of Tobacco Or Nicotine? No Information not available 10/11/2022 Sex: Unknown Functional Status Question Answer Note LastModified by Organization D etails LastModified Time What is your exercise level? Moderate Information not available 10/11/2022 Mental Status None recorded. Family History Relationship Description Onset Age of this Age Resolved Age Notes LastModified by Organization Details LastModified Time Brother Diabetes mellitus Not available 2022 20:28:30 Medical History No medical history recorded. Past Encounters Encounter ID Performer Location Encounter Start Date Encounter Closed Date Diagnosis/Indication Diagnosis SNOMED-CT Code Diagnosis ICD10 Code Diagnosis Note [id number] Rex Mcdonough MD [facility] [address] [address] 10/11/2022 11:46:25 10/12/2022 08:40:09 Obstructive sleep apnea syndrome 77338008 G47.33 G47.30 G47.61 G47.36 [id number] Rex Mcdonough MD [facility] [address] 02/15/2023 14:03:58 02/16/2023 08:20:35 Obstructive sleep apnea syndrome 77238954 G47.33 Periodic l imb movement disorder 497946445 G47.61 D50.8 E83.42 [id number] Rex Mcdonough MD [place] [address] 07/04/2023 08:54:39 07/04/2023 14:56:28 Obstructive sleep apnea syndrome 02570393 G47.33 Iron deficiency 75735335 E61.1 [id number] Rex Mcdonough MD [place] [address] 11/05/2023 09:45:28 11/06/2023 15:04:13 Obstructive sleep apnea syndrome 80457515 G47.33 Iron deficiency 74010635 E61.1 Health Concerns Section Related Observation LastModified by Organization Detai ls LastModified Time None Recorded Concern Status LastModified by Organization Details LastModified Time None Recorded Advance Directives Directive None Recorded Payers Encounter Date Sequence Insurance Name Policy Number Policy Yi Covered Member ID Yi Member ID Guarantor Name 10/11/2022 1 [place] Ray Espino [id number] Ray Espino 10/11/2022 2 [employer] OPTIONS (MEDICARE SUPPLEMENT) Ray Espino [id number] Ray Espino 02/15/2023 1 [place] Espino [id number] Ray Espino 02/15/2023 2 [employer] OPTIONS (MEDICARE SUPPLEMENT) Ray Espino [id number] Ray Espino 07/04/2023 1 [place] Espino [id number] Ray Espino 07/04/2023 2 [employer] OPTIONS (MEDICARE SUPPLEMENT) Ray Espino [id number] Ray Espino 11/05/2023 1 [place] Ray Espino [id number] Ray Espino 11/05/2023 2 [employer] OPTIONS (MEDICARE SUPPLEMENT) Ray Espino [id number] Ray Azar Lisa Notes Date Note Type Note Provider Name and Address Organization Details Recorded Time 10/11/2022 text/html Primary care/Ref erring provider: Wei Heck MD During the [facility] home sleep study on 10/04/22 AHI = 27, supine AHI = 71. At home, the patient sleeps from 8 pm to 4 am and wakes up without an alarm. Snoring: heavy, since . Snorting: yes Choking: yes Coughing: no Gasping: yes Gagging: yes Sighing: yes Witnessed apnea: yes Twitching or jerking of leg(s), arm(s), body, head: yes Teeth grinding: no Teeth clenching: no Sleeptalking: yes Sleepwalking: no Sleep crying: no Bedwetting: no Tongue/lip/gum/cheek biting: no Sleeping with open mouth: yes Sleep paralysis: no Hypnagogic hallucinations: no Hypnopompic hallucinations: no Vivid dreams: no Difficulty with sleep onset: no Difficulty with sleep maintenance: yes Sleep interruptions: for no known reasons Patient wakes up with: fatigue, xerostomia, sore throat, dexterity impairment Daytime cataplexy: no Morning hypersomnolence: no Afternoon hypersomnolence: yes Caffeine sources in diet: coffee 1 cup per day, tea 1/3 glass per day Associated medical and psychiatric conditions: Congestive heart failure: no Coronary artery disease: no Myocardial infarction: no Hypertension: no Stroke: noArrhythmia: yes Bronchial asthma: no Chronic obstructive pulmonary disease: no Depression: no Bipolar disorder: no Anxiety: no Panic disorder: no Posttraumatic stress disorder: no Attention deficit and hyperactivity disorder: no Obsessive Compulsive disorder: no Schizophrenia: no Schizoaffective disorder: no Personality disorder: no Chronic analgesic use: no Chronic sedative/hypnotic use: no EPWORTH SLEEPINESS SCALE (ESS) CHANCE OF DOZING SCORE 0 = would never doze 1 = slight chance of dozing 2 = moderate chance of dozing 3 = high chance of dozing SITUATION AND CHANCE OF DOZING Sitting and reading - 1 Watching television - 3 Sitting inactive in a public place (e.g. a theater or meeting) - 1 As a passenger in a car for an hour without a break - 1 Lying down to rest in the afternoon when circumstances permit - 3 Sitting and talking to someone - 0 Sitting quietly after lunch without alcohol - 1 In a car, while stopped for a few minutes in the traffic - 0 TOTAL SCORE 10 Subjectively, patient has a moderate chance of dozing. Rex Mcdonough MD [address] [place] [address], [facility] [address], [place], [address], [place] - [facility] 11/20/2022 12:57:49 02/15/2023 text/html Primary care/Ref erring provider: Chema Perez MD During the [facility] home sleep study on 10/04/22 AHI = 27, supine AHI = 71. During the [facility] titration sleep study 01/15/23, PLMI = 42. The patient uses a ResMed AirSense 11 autoset unit with heated humidification. The patient does not need the ramp to start low and go up slowly on the pressure. There is no xerostomia in a.m. There is no hose/mask condensation with water. The patient wears a ResMed medium AirFit F30 full face mask without chin strap. There is no claustrophobia, no nostril/nose bridge irritation, no facial rash, no facial numbness, no nosebleeding. The patient feels more refreshed upon waking and daytime alertness is improved. Energy levels are sustained for the remainder of the day. At home, the patient sleeps from 8 pm to 4 am and wakes up without an alarm. Snoring: heavy, since .Snorting: yesChoking: yesCoughing: noGasping: yesGagging: yesSighing: yesWitnessed apnea: yesTwitching or jerking of leg(s), arm(s), body, head: yesTeeth grinding: noTeeth clenching: noSleeptalking: yesSleepwalking: noSleep crying: noBedwetting: noTongue/lip/gum/cheek biting: noSleeping with open mouth: yesSleep paralysis: noHypnagogic hallucinations: noHypnopompic hallucinations: noVivid dreams: noDifficulty with sleep onset: noDifficulty with sleep maintenance: yesSleep interruptions: for no known reasonsPatient wakes up with: fatigue, xerostomia, sore throat, dexterity impairmentDaytime cataplexy: noMorning hypersomnolence: noAfternoon hypersomnolence: yesCaffeine sources in diet: coffee 1 cup per day, tea 1/3 glass per day Associated medical and psychiatric conditions:Congestive heart failure: noCoronary artery disease: noMyocardial infarction: noHypertension: noStroke: noArrhythmia: yesBronchial asthma: noChronic obstructive pulmonary disease: noDepression: noBipolar disorder: noAnxiety: noPanic disorder: noPosttraumatic stress disorder: noAttention deficit and hyperactivity disorder: noObsessive Compulsive disorder: noSchizophrenia: noSchizoaffective disorder: noPersonality disorder: noChronic analgesic use: noChronic sedative/hypnotic use: no EPWORTH SLEEPINESS SCALE (ESS) CHANCE OF DOZING SCORE0 = would never doze1 = slight chance of dozing2 = moderate chance of dozing3 = high chance of dozing SITUATION AND CHANCE OF DOZINGSitting and reading - 0Watching television - 1Sitting inactive in a public place (e.g. a theater or meeting) - 0As a passenger in a car for an hour without a break - 0Lying down to rest in the afternoon when circumstances permit - 2Sitting and talking to someone - 0Sitting quietly after lunch without alcohol - 0In a car, while stopped for a few minutes in the traffic - 0TOTAL SCORE 3Subjectively, patient has a slight chance of dozing. Rex Mcdonough MD [address] [place] [address], [address], [facility] 02/15/2023 14:59:07 07/04/2023 text/html Primary care/Ref erring provider: Chema Perez MD During the [facility] home sleep study on 10/04/22 AHI = 27, supine AHI = 71. During the [facility] titration sleep study 01/15/23, PLMI = 42 and he is here to go over his lab workup. At home since 05/30/23, the patient uses a ResMed AirSense 11 autoset unit with heated humidification. The patient does not need the ramp to start low and go up slowly on the pressure. There is no xerostomia in a.m. There is no hose/mask condensation with water. The patient wears a ResMed medium AirFit F30i full face mask without chin strap. There is no claustrophobia, no nostril/nose bridge irritation, no facial rash, no facial numbness, no nosebleeding. The patient feels more refreshed upon waking and daytime alertness is improved. Energy levels are sustained for the remainder of the day. At home, the patient sleeps from 8 pm to 4 am and wakes up without an alarm. Snoring: heavy, since .Snorting: yesChoking: yesCoughing: noGasping: yesGagging: yesSighing: yesWitnessed apnea: yesTwitching or jerking of leg(s), arm(s), body, head: yesTeeth grinding: noTeeth clenching: noSleeptalking: yesSleepwalking: noSleep crying: noBedwetting: noTongue/lip/gum/cheek biting: noSleeping with open mouth: yesSleep paralysis: noHypnagogic hallucinations: noHypnopompic hallucinations: noVivid dreams: noDifficulty with sleep onset: noDifficulty with sleep maintenance: yesSleep interruptions: for no known reasonsPatient wakes up with: fatigue, xerostomia, sore throat, dexterity impairmentDaytime cataplexy: noMorning hypersomnolence: noAfternoon hypersomnolence: yesCaffeine sources in diet: coffee 1 cup per day, tea 1/3 glass per day Associated medical and psychiatric conditions:Congestive heart failure: noCoronary artery disease: noMyocardial infarction: noHypertension: noStroke: noArrhythmia: yesBronchial asthma: noChronic obstructive pulmonary disease: noDepression: noBipolar disorder: noAnxiety: noPanic disorder: noPosttraumatic stress disorder: noAttention deficit and hyperactivity disorder: noObsessive Compulsive disorder: noSchizophrenia: noSchizoaffective disorder: noPersonality disorder: noChronic analgesic use: noChronic sedative/hypnotic use: no EPWORTH SLEEPINESS SCALE (ESS) CHANCE OF DOZING SCORE0 = would never doze1 = slight chance of dozing2 = moderate chance of dozing3 = high chance of dozing SITUATION AND CHANCE OF DOZINGSitting and reading - 0Watching television - 2Sitting inactive in a public place (e.g. a theater or meeting) - 0As a passenger in a car for an hour without a break - 0Lying down to rest in the afternoon when circumstances permit - 0Sitting and talking to someone - 0Sitting quietly after lunch without alcohol - 0In a car, while stopped for a few minutes in the traffic - 0TOTAL SCORE 2Subjectively, patient has a slight chance of dozing. 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 During the [facility] home sleep study on 10/04/22 AHI = 27, supine AHI = 71. During the [facility] titration sleep study 01/15/23, PLMI = 42 and he is here to go over his lab workup. At home since 07/04/23, the patient uses a ResMed AirSense 11 autoset unit with heated humidification. The patient does not need the ramp to start low and go up slowly on the pressure. There is no xerostomia in a.m. There is no hose/mask condensation with water. The patient wears a ResMed medium AirFit F30i full face mask without chin strap. There is no claustrophobia, no nostril/nose bridge irritation, no facial rash, no facial numbness, no nosebleeding. The patient feels more refreshed upon waking and daytime alertness is improved. Energy levels are sustained for the remainder of the day. At home, the patient sleeps from 8 pm to 4 am and wakes up without an alarm. Snoring: heavy, since .Snorting: yesChoking: yesCoughing: noGasping: yesGagging: yesSighing: yesWitnessed apnea: yesTwitching or jerking of leg(s), arm(s), body, head: yesTeeth grinding: noTeeth clenching: noSleeptalking: yesSleepwalking: noSleep crying: noBedwetting: noTongue/lip/gum/cheek biting: noSleeping with open mouth: yesSleep paralysis: noHypnagogic hallucinations: noHypnopompic hallucinations: noVivid dreams: noDifficulty with sleep onset: noDifficulty with sleep maintenance: yesSleep interruptions: for no known reasonsPatient wakes up with: fatigue, xerostomia, sore throat, dexterity impairmentDaytime cataplexy: noMorning hypersomnolence: noAfternoon hypersomnolence: yesCaffeine sources in diet: coffee 1 cup per day, tea 1/3 glass per day Associated medical and psychiatric conditions:Congestive heart failure: noCoronary artery disease: noMyocardial infarction: noHypertension: noStroke: noArrhythmia: yesBronchial asthma: noChronic obstructive pulmonary disease: noDepression: noBipolar disorder: noAnxiety: noPanic disorder: noPosttraumatic stress disorder: noAttention deficit and hyperactivity disorder: noObsessive Compulsive disorder: noSchizophrenia: noSchizoaffective disorder: noPersonality disorder: noChronic analgesic use: noChronic sedative/hypnotic use: no EPWORTH SLEEPINESS SCALE (ESS) CHANCE OF DOZING SCORE0 = would never doze1 = slight chance of dozing2 = moderate chance of dozing3 = high chance of dozing SITUATION AND CHANCE OF DOZINGSitting and reading - 1Watching television - 2Sitting inactive in a public place (e.g. a theater or meeting) - 1As a passenger in a car for an hour without a break - 1Lying down to rest in the afternoon when circumstances permit - 2Sitting and talking to someone - 1Sitting quietly after lunch without alcohol - 2In a car, while stopped for a few minutes in the traffic - 1TOTAL SCORE 11Subjectively, patient has a moderate chance of dozing. Rex Mcdonough MD [address] [place] [address], [facility] [address], [place], [address], [place] [facility] [place] [employer] [facility] 11/05/2023 10:37:24
--- OUTSIDE RECORDS SUMMARY | 2024-04-18 07:03 | XMS_ITS | Encounter Summary ---
Author Organization [facility] Healthcare Address [address] [place] [address] Care Team Providers Care Contract Implementation Analyst Name Role Phone Wei Heck MD Primary Care Provider [phone] Chaparro Hameed MD Unavailable [phone] Laith Traylor MD Unavailable [phone] Nicole Banegas RN Unavailable Unavailabl Aj Duenas MD Unavailable [phone] Tino Mendoza MD Unavailable [phone] Chema Perez MD Primary Care Provider [phone] Laith Banegas MD Unavailable [phone] Encounter Details Date Type Department Care Team (Late st Contact Info) Description 05/22/2023 Orders Only [facility] Health Information Management [address] [place] [address] Scanning, Provider Social History Tobacco Use Types Packs/Day Years Used Date Smoking Tobacco: Never Smokeless Tobacco: Never Alcohol Use Standard Drinks/Week Comments Yes 8 (1 standard drink = 0.6 oz pur e alcohol) Social Connection and Isolat ion Panel [NHANES] Answer Date Recorded In a typical week, how many times do you talk on the phone with family, friends, or neighbors? More than three times a week 11/22/2022 How often do you get togethe r with friends or relatives? More than three times a week 11/22/2022 How often do you attend [facility] ch or catholic services? 1 to 4 times per year 11/22/2022 Active Member of Clubs or Organizations Not on f ile 11/22/2022 How often do you attend meet ings of the clubs or organizations you belong to? 1 to 4 times per year 11/22/2022 Are you , , di vorced, , never , or living with a partner? 11/22/2022 AUDIT-C Answer Date Recorded Q1: How often do you have a drink containing alc ohol? 2-3 times a week 11/21/2022 Q2: How many drinks containi ng alcohol do you have on a typical day when you are drinking? 1 or 2 11/21/2022 Q3: How often do you have si x or more drinks on one occasion? Never 11/21/2022 Overall Financial Resource Strain (CARDIA) Answe r Date Recorded How hard is it for you to pa y for the very basics like food, housing, medical care, and heating? Not very hard 11/22/2022 PRAPARE - Transportation Answer Date Re corded In the past 12 months, has l ack of transportation kept you from medical appointments or from getting medications? No 11/12 In the past 12 months, has l ack of transportation kept you from meetings, work, or from getting things needed for daily living? No 11/22/2022 Personal Safety Answer Date Recorded Have you ever been in or are you currently in a harmful physical or emotional relationship or is someone making you feel afraid or unsafe? 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 Gender Identity Male 07/24/2023 3:20 PM CDT Sexual Orientation Straight 07/24/2023 3: 20 PM CDT documented as of this encounter Plan of Treatment Not on file documented as of this encounter Procedures Procedure Name Priority Date/Time Associated Diagnosis Comments SCAN - LABS 05/22/2023 documented in this encounter Results * SCAN - LABS (05/22/2023) us Provider Scanning Final Result documented in this encounter Visit Diagnoses Not on filedocumented in this encounter Care Teams Contract Implementation Analyst Relationship Specialty Start Date End Date Wei Heck MD [address] [place] [address] PCP - General Family Medicine 03/01/20 07/30/23 Chema Perez MD [address] [place] [address] PCP - General Family Medicine 07/31/23 Chaparro Hameed MD [address] [facility] [address], [place] [address] Consulting Physician Cardiology 07/29/21 Laith Traylor MD [address] [place] [address] Referring Physician Otolaryngology 07/16/23 Nicole Banegas, RN Nurse Navigator 07/25/23 02/06/24 Aj Lua MD [address] [facility] [address] [place] [address] Medical Oncologist/Target Protection Specialist Medical Oncology 07/27/23 Tino Mendoza MD [address] [place] [address] Radiation Oncologist Radiation Oncology 07/27/23 Laith Banegas MD [address] [facility] DEPT OTOLARYNGOLOGY, [address] [address] Surgeon Otolaryngology 08/02/23 documented as of this encounter
--- OUTSIDE RECORDS SUMMARY | 2024-04-18 07:03 | XMS_ITS | Clinical Summary ---
Author Organization [facility] Address [address] [place] [address] Care Team Providers Care Legal Arbitrator Name Role Phone Chema Perez MD Primary Care Provider [phone] Allergies No known active allergies Medications lisinopril (PRINIVIL) 20 MG tablet Take 1 tablet (20 mg total) by mouth daily. 05/22/2023 Active metFORMIN (GLUCOPHAGE) 500 MG tablet Take 1 tablet (500 mg total) by mouth daily with breakfast. 05/21/2023 Active pantoprazole EC (PROTONIX) 40 MG tablet Take 1 tablet (40 mg total) by mouth daily. 06/11/2023 Active simvastatin (ZOCOR) 20 MG tablet Take 1 tablet (20 mg total) by mouth nightly at bedtime. 06/11/2023 Active flecainide (TAMBOCOR) 100 MG tablet Take 1 tablet (100 mg total) by mouth. 05/10/2023 Active warfarin (COUMADIN) 5 MG tablet Take 1 tablet (5 mg total) by mouth. 05/05/2023 Active metoprolol succinate ER (TOPROL-XL) 50 MG 24 hr tablet Take 1 tablet (50 mg total) by mouth. 03/09/2023 Active HYDROcodone-alonzo taminophen (NORCO) 5-325 MG tablet Take 1 tablet by mouth every 4 (four) hours as needed. FOR PAIN 06/11/2023 Active Social History Tobacco Use Types Packs/Day Years Used Date Smoking Tobacco: Never Smokeless Tobacco: Never Tobacco Cessation:Counseling Given: Not Answered Alcohol Use Standard Drinks/Week Comments Yes 0 (1 standard drink = 0.6 oz pur e alcohol) Sex and Gender Information Value Date Recorded Sex Assigned at Not on file Legal Sex Male 3:49 PM CDT Gender Identity Not on file Sexual Orientation Not on file Last Filed Vital Signs Vital Sign Reading Time Taken Comments Blood Pressure - - Pulse - - Temperature - - Respiratory Rate - - Oxygen Saturation - - Inhaled Oxygen Concentration - - Weight 85.3 kg (188 lb) 06/25/2023 12:02 AM CDT Height 180.3 cm (5' 11 ) 06/25/2023 12:02 AM CDT Body Mass Index 26.22 06/25/2023 12:02 AM CDT Plan of Treatment Health Maintenance Due Date Last Done Comments Colorectal Cancer Screening Colonoscopy (10 Years) 1955 Hepatitis C 1972 Annual Medicare Wellness Visit 05/18/2019 Zoster Vaccines (2 of 2) 03/28/2022 01/31/2022 COVID-19 Vaccine ( season) 2023 02/20/2023, 01/31/2022, 01/11/2021, Additional history exists Influenza Adult (#1) 2023 RSV Immunization or 60+ Years (1 - 1-dose 75+ series) 2029 DTaP, Tdap and Td Vaccines (2 - Td or Tdap) 12/04/2030 12/04/2020 Pneumococcal Vaccine: 65+ Years Completed 03/02/2022 Meningococcal B Vaccine Aged Out No l onger eligible based on patient's age to complete this topic Meningococcal Vaccine Aged Out No donaldo isabell eligible based on patient's age to complete this topic RSV Immunizations Under 20 Months Aged Out No longer eligible based on patient's age to complete this topic Insurance MEDICARE AARP Care Teams Legal Arbitrator Relationship Specialty Start Date End Date Chema Perez MD [address] [place] [address] PCP - General FAMILY PRACTICE 06/27/23
--- OUTSIDE RECORDS SUMMARY | 2024-04-18 07:03 | XMS_ITS | Continuity of Care Document ---
Author Organization [facility] Address [address] [place] [address] Phone Care Team Providers Care Roof Fitter Name Role Phone Renee Jo MD Unavailable Unavailable Procedures Procedure Date SCREENING COLONOSCOPY ; HIGH RISK Advance Directives Directive Yes / No Effective Date File Name No Information Encounters Encounter Description Practice Location Reason(s) For Visit Diagnoses Date Provider Providers Copied on Encounter [facility], [address], [place], [place], [id number], tel:[phone] GI SCOPES No Information Sandro Duran. [address] [place] [address], [id number], . tel:[phone] Referring Provider: Wei Heck, [address] [place] [address], [address]. tel:[phone] Family History Family Member Type Diagnosis Age At Onset No Information Payers Payer name Insurance type Covered alliance party ID Authoriza tichago(s) MEDICARE MB [id number] AARP MDCR SUPPLEMENT ONLY CI [id number] Social History Type Description Quantity Date Captured Comments Sex Male Smoking Status No Information Chief Complaint And Reason For Visit No Information Reason For Referral Reason For Referral No Information History Of Present Illness Encounter Date Complaint History Of Prese nt Illness No Information Functional Status Date Functional Assessmen t No Information Instructions Date Instruction Additional Infor mation No Information Assessments Type Assessment Date No Information Patient Care Teams Name Effective Dates (start - stop) Status Members No Information
--- OUTSIDE RECORDS SUMMARY | 2024-04-18 07:03 | XMS_ITS | Encounter Summary ---
Author Organization [facility] Address [address] [address] Care Team Providers Care Gear Roller Name Role Phone Chema Perez MD Primary Care Provider [phone] Chema Perez MD Primary Care Provider [phone] Wei Heck MD Primary Care Provider [phone] Chaparro Hameed MD Unavailable [phone] Laith Traylor MD Unavailable [phone] Nicole Banegas RN Unavailable Unavailabl e Aj Lua MD Unavailable [phone] Tino Mendoza MD Unavailable [phone] Chema Perez MD Primary Care Provider [phone] Laith Banegas MD Unavailable [phone] Encounter Details Date Type Department Care Team (Late st Contact Info) Description 02/23/2016 Orders Only [facility] ProviderAlex MD [address] [place] [address] Social History Tobacco Use Types Packs/Day Years Used Date Smoking Tobacco: Never Alcohol Use Standard Drinks/Week Comments Yes 0 (1 standard drink = 0.6 oz pur e alcohol) Sex and Gender Information Value Date Recorded Sex Assigned at Not on file 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 us Historical Provider [facility] HEID[facility] FISCHER Final Result documented in this encounter Visit Diagnoses Not on filedocumented in this encounter Care Teams Gear Roller Relationship Specialty Start Date End Date Chema Perez MD [address] [place] [address] PCP - General 05/12/16 02/29/20 Chema Perez MD [address] [place] [address] PCP - General 02/28/11 05/11/16 Wei Heck MD [address] [place] [address] PCP - General Family Medicine 03/01/20 07/30/23 Chema Perez MD [address] [place] [address] PCP - General Family Medicine 07/31/23 Chaparro Hameed MD [address] [address] Consulting Physician Cardiology 07/29/21 Laith Traylor MD [address] [place] [address] Referring Physician Otolaryngology 07/16/23 Nicole Banegas, RN Nurse Navigator 07/25/23 02/06/24 Aj Lua MD [address] [facility] [address] [place] [address] Medical Oncologist/Adjunct Faculty Instructor Medical Oncology 07/27/23 Tino Mendoza MD [address] [place] [address] Radiation Oncologist Radiation Oncology 07/27/23 Laith Banegas MD [address] [facility] DEPT OTOLARYNGOLOGY, [address] [address] Surgeon Otolaryngology 08/02/23 documented as of this encounter
--- OUTSIDE RECORDS SUMMARY | 2024-04-18 07:03 | XMS_ITS | Patient Health Summary ---
Author Organization [facility] Address [address] [place] [address] Care Team Providers Care Technical Translator Name Role Phone Unavailable Primary Care Provider Unavailabl e Note from [facility],non-owned Affiliates and Associated Physician Practices is amultiple site organization consisting of ambulatory clinics and hospital sitesin [place], [place], [place] and [place]. This disclosure is being madepursuant to the Care Everywhere program and may not contain all information available regarding this patient. Last updated 17.[facility] Social History Tobacco Use Types Packs/Day Years Used Date Smoking Tobacco: Never Assessed Sex and Gender Information Value Date Recorded Sex Assigned at Not on file Gender Identity Not on file Sexual Orientation Not on file Procedures * DERMATOPATHOLOGY(Performed 01/09/2023) * DERMATOPATHOLOGY(Performed 06/08/2022) * DERMATOPATHOLOGY(Performed 05/03/2022) * DERMATOPATHOLOGY(Performed 01/19/2021) * DERMATOPATHOLOGY(Performed 11/25/2020) * DERMATOPATHOLOGY(Performed 12/29/2019) * DERMATOPATHOLOGY(Performed 11/04/2019) Results * DERMATOPATHOLOGY (01/09/2023 8:49 AM [facility]) Only the most recent of7 resultswithin the time period is included. Case Report Dermatopathology Report Case: [id number] Authorizing Provider: Katerin Chavis MD Collected: 01/09/2023 08:49 AM Ordering Location: [facility] Received: 01/10/2023 02:46 PM Pathologist: Deandra Bustillo MD Specimen: Skin, left cheek 3 2:27 PM [facility] Final Diagnosis Specimen A. SKIN, left cheek: BASAL CELL CARCINOMA, NODULAR TYPE (C44.319) 3 2:27 PM [facility] Clinical History /O BCC, SCC, [facility] Papule 3 2:27 PM [facility] Gross Description Specimen A: Received is one formalin filled container labeled with the patient's name and designated left cheek. The specimen consists of a shave biopsy measuring 4x3x1 mm. Jar 0. 3 2:27 PM [facility] Microscopic Description Specimen A. SKIN, left cheek: Within the dermis there are aggregates of basaloid cells with a high nuclear to cytoplasmic ratio and peripheral palisading. 3 2:27 PM [facility] Disclaimer An external and internal positive and negative controls are appropriate for the histochemical, immunohistochemical and immunofluorescence stain(s) in this case (if any), except where stated explicitly. The performance characteristics of the stain(s) cited in this report were developed and its performance characteristic determined by the Dermatopathology Laboratory at [facility], directed by Dr. Jose Olivo. These tests need not be, and therefore are not, approved by the [place] Food and Drug Administration. The tests are used for clinical purposes. Billing Codes Specimen Charges Stain Charges 74344 1 3 2:27 PM [facility] Embedded Images 3 2:27 PM [facility] Pathology/Cytolo gy TISSUE SPECIMEN FROM SKIN / Unknown 01/09/2023 8:49 AM [facility] 01/10/2023 2:46 PM [facility] Katerin Chavis MD LAB - PATHOLOGY/CYTO LOGY [facility] DERMATOPATHOLOGY LABORATORY [facility] - Department of Dermatology [address] [phone]
--- OUTSIDE RECORDS SUMMARY | 2024-04-18 07:03 | XMS_ITS ---
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 Cancer Staging:Clinical stage from 08/02/2023:Stage II(cT2, cN2, cM0, p16+) - Signed by Tino Mendoza MD on 08/30/2023 Squamous cell carcinoma of head and neck 024 Overview (01/16/2024): 70 Gy with concurrent chemotherapy completed 10/23/23 (Oppelt/Reji) Moderate protein-calorie malnutrition 12/05/2022 Pain and swelling of knee, left 12/04/2022 Total knee replacement status, left 11/21/2022 Gastroesophageal reflux disease 06/20/2022 Overview (06/20/2022): GERD H/O mechanical aortic valve replacement 06/21/19 A-fib 06/20/2022 HTN (hypertension) 06/20/2022 HLD (hyperlipidemia) 06/20/2022 Osteoarthritis of left knee 06/20/2022 PAF (paroxysmal atrial fibrillation) 01/27/2022 Chest pain 08/21/2017 Hyperlipidemia LDL goal <100 02/16/2017 Chronic anticoagulation 02/16/2017 Essential hypertension 02/16/2017 Pre-diabetes 02/16/2017 Preoperative state 02/23/2016 Overview (05/19/2016): Pre-operative cardiovascular examination Hx of mechanical aortic valve replacement 2016 Overview (05/19/2016): Status post ablation of atrial flutter Paroxysmal atrial flutter 12/23/2013 Overview (05/19/2016): Atrial flutter Shortness of breath 12/07/2010 Current Treatment and Therapy Plans Hydration Therapy Plan* Plan Start Date:10/02/2023 Plan Provider:Aj Lua MD Linked Problems Cancer of base of tongue (HC C) Treatment Medications No medications scheduled. Hydration Therapy Plan* Plan Start Date:10/05/2023 Plan Provider:Tino Mendoza MD Linked Problems Cancer of base of tongue (HC C) Treatment Medications No medications scheduled. Past Treatment and Therapy Plans Oncology Chemotherapy Treatment Plan Name Start Date Discontinue Date Treatment Medications Discontinue Reason Plan Provider Cycles CISplatin with Concurrent Radiation 21 Day Cycles - Head and Neck 4 11/02/2023 CISplatin (PLATINOL) IVPB in 250 mLCISplatin (PLATINOL) IVPB in 500 mLdexAMETHasone (DECADRON) Therapy Complete Aj Lua MD 3 of 3 cycles started Radiation Treatments * Course [id number]/03/2023 - 10/23/2023 Treatment Period Energy Fraction Dose Fractions Total Dose Plans Planned BILAT HN 09/03/2023 - 10/23/2023 200 35 / 7,000 Reference Points Delivered [id number] 09/03/2023 - 10/23/2023 7,000
--- OUTSIDE RECORDS SUMMARY | 2024-04-18 07:03 | XMS_ITS | Clinical Summary ---
Author Organization [facility] [place] [address] Address [address] [place] [address] Care Team Providers Care Interior Design Professor Name Role Phone Chaparro Hameed MD Unavailable Laith Traylor MD Unavailable [phone] OpAj lozano MD Unavailable Tino Mendoza MD Unavailable [phone] Chema Perez MD Primary Care Provider Laith Banegas MD Unavailable Allergies No known active allergies Medications metFORMIN (GLUCOPHAGE) 500 mg tablet Take 1 tablet (500 mg total) by mouth 2 (two) times a day with meals 023 Active docusate sodium (COLACE) 100 mg capsuleIndicati ons:constipatio n Take 1 capsule (100 mg total) by mouth 2 (two) times a day 30 capsule 023 Active HYDROcodone-alonzo taminophen (NORCO) 10-325 mg per tabletIndicatio ns:Pain Take 1 tablet by mouth every 6 (six) hours as needed for pain 28 tablet 023 Active aspirin 81 mg enteric coated tablet Take 1 tablet (81 mg total) by mouth daily Active amoxicillin 500 mg tablet/capsule TAKE 4 CAPSULES BY MOUTH 1 HOUR PRIOR TO PROCEDURE. 4 tablet/cap aneesh 024 Active Additional Information Patient not taking.Reported on 07/24/2023 multivitamin with minerals tablet Take 1 tablet by mouth daily Active ascorbic acid (vitamin C) 1,000 mg tablet Take 1 tablet (1,000 mg total) by mouth daily Active cholecalciferol (Vitamin D3) 2000 unit capsule 1 capsule (2,000 Units total) Active warfarin (COUMADIN) 6 mg tablet TAKE 1 TABLET BY MOUTH FOUR TIMES PER WEEK(SUNDAY, SUNDAY, SUNDAY, SUNDAY) 90 tablet 1 Active enoxaparin (LOVENOX) 80 mg/0.8 mL syringe Inject 0.8 mL (80 mg total) under the skin every 12 (twelve) hours 14 mL 1 Active Additional Information Patient not taking.Reported on 09/03/[address] (PROTONIX) 40 mg EC tabletIndicatio ns:Chest pain, unspecified type TAKE ONE TABLET BY MOUTH EVERY DAY DIRECTED 30 tablet 11 Active flecainide (TAMBOCOR) 100 mg tablet Take 1 tablet (100 mg total) by mouth 2 (two) times a day 90 tablet 3 024 2024 Active Additional Information Patient not taking.Reported on 11/28/2023 ondansetron (ZOFRAN) 8 mg tabletIndicatio ns:Cancer of base of tongue (HCC) Take 1 tablet (8 mg total) by mouth every 8 (eight) hours as needed for nausea or vomiting Use if prochlorperazine does not stop nausea. 24 tablet 3 Active Additional Information Patient not taking.Reported on 09/03/2023 prochlorperazin e (Compazine) 10 mg tabletIndicatio ns:Cancer of base of tongue (HCC) Take 1 tablet (10 mg total) by mouth every 6 (six) hours as needed for nausea or vomiting Use first for nausea. 120 tablet 3 Active Additional Information Patient not taking.Reported on 09/03/2023 metoprolol XL (TOPROL-XL) 50 mg extended release tablet TAKE ONE TABLET BY MOUTH DAILY 90 tablet 3 Active silver sulfadiazine (SILVADENE, SSD) 1 % cream Apply topically 3 (three) times a day 50 g Active Additional Information Patient not taking.Reported on 01/28/2024 fentaNYL (DURAGESIC) 25 mcg/hr Place 1 patch on the skin every third day 10 patch Active oxyCODONE (ROXICODONE) 5 mg immediate release tabletIndicatio ns:Pain Take 1 tablet (5 mg total) by mouth every 6 (six) hours as needed for pain 60 tablet Active hydrocortisone- pramoxine (ANALPRAM-HC) 2.5-1 % (4g) rectal cream Insert into the rectum 2 (two) times a day 4 g 3 Active Additional Information Patient not taking.Reported on 11/22/2023 magnesium citrate solution Take 148 mL by mouth once for 1 dose 148 mL Active Additional Information Patient not taking.Reported on 11/22/2023 lisinopriL (PRINIVIL,ZESTR IL) 20 mg tabletIndicatio ns:Essential hypertension TAKE 1 TABLET (20 MG TOTAL) BY MOUTH DAILY 90 tablet 3 Active simvastatin (ZOCOR) 20 mg tablet TAKE 1 TABLET(20 MG) BY MOUTH EVERY NIGHT 90 tablet 3 024 Active enoxaparin (LOVENOX) 100 mg/mL syringe Inject 0.7 mL (70 mg total) under the skin every 12 (twelve) hours 10 mL 1 024 Active warfarin (COUMADIN) 7.5 mg tablet Take 1 tablet (7.5 mg total) by mouth as directed Take 7.5mg 5 days a week and 6mg 2 days a week or as directed by physician. 30 tablet 2 025 Active warfarin (COUMADIN) 5 mg tablet TAKE 1 AND 1/2 TABLETS(7.5 MG) BY MOUTH DAILY DIRECTED BY PRESCRIBER 45 tablet 11 025 Active warfarin (COUMADIN) 5 mg tablet Take 1.5 tablets (7.5 mg total) by mouth daily Take 1.5 tablets daily or as directed by physician. 45 tablet 11 023 2024 Discontinued Active Problems Problem Noted Date Diagnosed Date Cancer of base of tongue 08/02/2023 Cancer Staging:Clinical stage from 08/02/2023:Stage II(cT2, cN2, cM0, p16+) - Signed by Tino Mendoza MD on 08/30/2023 Squamous cell carcinoma of head and neck 06/10/2 024 Overview (01/16/2024): 70 Gy with concurrent [...] (05/19/2016): Atrial flutter Shortness of breath 12/07/2010 Encounters Date Type Department Care Team Description 03/26/2024 9:30 AM STUDENT SUCCESS COUNSELOR Clinical Support [facility] Medical Office Building 2 Radiation Oncology [address] [place] [address] Squamous cell carcinoma of head and neck (Primary Dx) 03/26/2024 9:00 AM STUDENT SUCCESS COUNSELOR Office Visit [facility] Medical Office Building 2 Radiation Oncology [address] [place] [address] Tino Mendoza MD Cancer of base of tongue (HCC) (Primary Dx) 03/25/2024 Anticoagulation Visit [facility] Cardiology [address] [place] [address] Noah Blancas RN Paroxysmal atrial flutter (HCC) (Primary Dx); Hx of mechanical aortic valve replacement 03/03/2024 Anticoagulation Visit [facility] Cardiology [address] [place] [address] [place] [phone] Shereen Macdonald RN Paroxysmal atrial flutter (HCC) (Primary Dx); Hx of mechanical aortic valve replacement 02/22/2024 Anticoagulation Visit [facility] Cardiology [address] [place] [address] [place] [phone] Noah Blancas RN Paroxysmal atrial flutter (HCC) (Primary Dx); Hx of mechanical aortic valve replacement 02/20/2024 Telephone [place] [address] [place] [phone] Noah Donnelly MD 02/04/2024 Anticoagulation Visit [place] [address] [place] [phone] Noah Blancas RN Paroxysmal atrial flutter (HCC) (Primary Dx); Hx of mechanical aortic valve replacement 01/29/2024 Telephone [facility] [address] [place] [phone] Nicole Banegas RN End of Navigation 01/28/2024 9:15 AM STUDENT SUCCESS COUNSELOR Office Visit [facility] Oncology [address] [place] [address] [place] [phone] Aj Lua MD Cancer of base of tongue (HCC) (Primary Dx); Squamous cell carcinoma of head and neck 01/24/2024 Anticoagulation Visit [facility] Cardiology [address] [place] [address] [place] [phone] Noah Blancas RN Paroxysmal atrial flutter (HCC) (Primary Dx); Hx of mechanical aortic valve replacement 01/23/2024 9:30 AM STUDENT SUCCESS COUNSELOR Clinical Support [facility] Medical Office Building 2 Radiation Oncology [facility] [place] [address] Squamous cell carcinoma of head and neck (Primary Dx); Cancer of base of tongue (HCC); Moderate protein-calorie malnutrition; Pre-diabetes 01/23/2024 9:00 AM STUDENT SUCCESS COUNSELOR Office Visit [facility] Medical Office Building 2 Radiation Oncology [address] [place] [address] Tino Mendoza MD Cancer of base of tongue (HCC) (Primary Dx) from Last 3 Months Surgical History Surgery Date Site/Laterality Comments KNEE SURGERY 02/12/2021 - 02/11/2022 Knee surgery, arthroscopy SHOULDER SURGERY arthroscopy x3 APPENDECTOMY Appendectomy AORTIC VALVE REPLACEMENT 02/12/2010 - 02/11/2011 SKIN CANCER EXCISION Medical History Medical History Date Comments Gastroesophageal reflux disease GERD A-fib (HCC) HTN (hypertension) HLD (hyperlipidemia) Osteoarthritis of left knee Skin cancer Atrial fibrillation, unspecified type (HCC) Family History Medical History Relation Name Comments Stroke Father Stroke; Brain cancer Mother Coronary artery disease Mother Obie nary Artery Disease; Relation Name Status Comments Father Alive Mother Social History Tobacco Use Types Packs/Day Years Used Date Smoking Tobacco: Never Smokeless Tobacco: Never Tobacco Cessation:Counseling Given: Not Answered Alcohol Use Standard Drinks/Week Comments Yes 8 [...] week 11/22/2022 How often do you attend [facility] or [facility]ist services? 1 to 4 times per year [...] often do you have a drink containing alcohol? 4 or more times a week 09/24/2023 Q2: How many drinks containi ng alcohol do you have on a typical day when you are drinking? 1 or 2 Q3: How often do you have si x or more drinks on one occasion? Less than monthly 09/24/2023 Overall Financial Resource Strain (CARDIA) Answe r [...] on file Legal Sex Male 11:08 AM STUDENT SUCCESS COUNSELOR Gender Identity Male 07/24/2023 3:20 PM CDT Sexual Orientation Straight 07/24/2023 3: 20 PM CDT Obstetrics History Last Filed Vital Signs Vital Sign Reading Time Taken Comments Blood Pressure 166/77 03/26/2024 9:08 AM STUDENT SUCCESS COUNSELOR Pulse 55 03/26/2024 9:08 AM STUDENT SUCCESS COUNSELOR Temperature 36.6 C (97.9 F) 01/28/2024 9:28 AM STUDENT SUCCESS COUNSELOR Respiratory Rate 16 01/28/2024 9:28 AM STUDENT SUCCESS COUNSELOR Oxygen Saturation 100% 03/26/2024 9:08 AM STUDENT SUCCESS COUNSELOR Inhaled Oxygen Concentration - - Weight 79.4 kg (175 lb) 03/26/2024 9:08 AM STUDENT SUCCESS COUNSELOR Height 175.3 cm (5' 9 ) 11/22/2023 10:34 AM CDT Body Mass Index 25.84 11/22/2023 10:34 AM CDT Plan of Treatment Health Maintenance Due Date Last Done Comments Colon Cancer Screening-Colonoscopy 1954 Depression Screening 1954 Hepatitis C Screening 1954 Prostate Cancer Screening-PSA 1954 DTaP/Tdap/Td Vaccine (1 - Tdap) 1965 Hepatitis B Screening 1972 Pneumococcal vaccine 65+ (1 of 2 - PCV) 1973 Zoster Vaccine (1 of 2) 1973 Well Visit 65+ 05/18/2019 Influenza Vaccine (#1) 2023 Fall Risk Assessment 12/08/2023 12/07/2022 Medical Devices Implanted Type Area Ludlow Machine Operator Device Identifier Shelf Expiration Date Model / Serial / Lot Prosthetic Valve Prosthetic Valve N/A: Aortic Valve [employer] Component Femoral Knee Porous Cruciate Retaining Standard Left Persona Trabecular Metal Size 11 [place] Chromium [id number] - [id number] Implanted:Qty : 1 on 11/21/2022 by Juan Rosenberg MD at [facility] Left: Knee [employer] [id number] 1 12/14/2031 [id number] / / [id number] [employer] Persona 10mm Knee Left 8-11 G-H Insert Articular Vivacit-E [id number] - [id number] Implanted:Qty : 1 on 11/21/2022 by Juan Rosenberg MD at [facility] Left: Knee [employer] [id number] 08/17/2027 [id number] / / [id number] [employer] Baseplate Tibial Knee Porous Left Fixed Persona Size G Tivanium [id number] - [id number] Implanted:Qty : 1 on 11/21/2022 by Juan Rosenberg MD at [facility] Left: Knee [employer] 08/23/2030 [id number] / / [id number] [employer] Persona 10mm Knee Left 8-11 G-H Insert Articular Vivacit-E [id number] - [id number] Implanted:Qty : 1 on 12/04/2022 by Juan Rosenberg MD at [facility] Left: Knee [employer] [id number] 09/13/2027 [id number] / / [id number] Procedures Procedure Name Priority Date/Time Associated Diagnosis Comments PROTIME-INR Routine 03/25/2024 PROTIME-INR Routine 03/01/2024 PROTIME-INR Routine 02/22/2024 PROTIME-INR Routine 02/04/2024 PROTIME-INR Routine 01/24/2024 from Last 3 Months Results * (ABNORMAL) Protime-INR (03/25/2024) INR 2.60(A) 0.90 - 1.10 EXTERNAL LAB Blood Result [facility] Provider MD LAB BLOOD ORDERABLES Aminata l Result Performing Organization Address City/[facility]/ZIP Co de Phone Number EXTERNAL LAB * (ABNORMAL) Protime-INR (03/01/2024) INR 3.10(A) 0.90 - 1.10 EXTERNAL LAB Blood Result [facility] Provider MD LAB BLOOD ORDERABLES Aminata l Result Performing Organization Address City/[facility]/ZIP Co de Phone Number EXTERNAL LAB * (ABNORMAL) Protime-INR (02/22/2024) INR 2.20(A) 0.90 - 1.10 EXTERNAL LAB Blood Result [facility] Provider MD LAB BLOOD ORDERABLES Aminata l Result Performing Organization Address City/[facility]/ZIP Co de Phone Number EXTERNAL LAB * (ABNORMAL) Protime-INR (02/04/2024) INR 2.90(A) 0.90 - 1.10 EXTERNAL LAB Blood Result [facility] Provider MD LAB BLOOD ORDERABLES Aminata l Result Performing Organization Address City/[facility]/ZIP Co de Phone Number EXTERNAL LAB * (ABNORMAL) Protime-INR (01/24/2024) INR 3.60(A) 0.90 - 1.10 EXTERNAL LAB Blood Result [facility] Provider MD LAB BLOOD ORDERABLES Aminata l Result EXTERNAL LAB from Last 3 Months Insurance MEDICARE [facility] MEDICARE [facility] MEDICARE [facility] Advance Directives For more information, please contact: [phone] * Full Code (Latest Code Status on File) Date Activated Date Inactivated Comments 12/04/2022 8:33 PM 12/07/2022 6:00 PM * Full Code Date Activated Date Inactivated Comments 12/04/2022 9:04 AM 12/04/2022 8:33 PM * Full Code Date Activated Date Inactivated Comments 11/21/2022 4:44 PM 11/22/2022 6:14 PM * Full Code Date Activated Date Inactivated Comments 07/29/2021 8:34 AM 07/30/2021 4:41 AM * Full Code Date Activated Date Inactivated Comments 07/12/2021 8:38 AM 07/13/2021 4:49 AM Care Teams Interior Design Professor Relationship Specialty Start Date End Date Chema Perez MD [address] [place] [address] PCP - General Family Medicine 07/31/23 Chaparro Hameed MD [address] [facility] [address], [place] [address] Consulting Physician Cardiology 07/29/21 Laith Traylor MD [address] [place] [address] Referring Physician Otolaryngology 07/16/23 Aj Lua MD [address] [address] Medical Oncologist/Ball Thread Machine Tender Medical Oncology 07/27/23 Tino Mendoza MD [address] [place] [address] Radiation Oncologist Radiation Oncology 07/27/23 Laith Banegas MD [address] [facility] DEPT OT[address]ARYNGOLOGY[address] [address] Surgeon Otolaryngology 08/02/23
--- OUTSIDE RECORDS SUMMARY | 2024-04-18 07:03 | XMS_ITS | Referral Summary ---
Author Organization [address] Address [address] [place] [address] Care Team Providers Care Flame Burner Name Role Phone Chaparro Hameed MD Unavailable Laith Traylor MD Unavailable [phone] OpAj lozano MD Unavailable [phone] Tino Mendoza MD Unavailable [phone] Chema Perez MD Primary Care Provider [phone] Laith Banegas MD Unavailable [phone] Encounters Date Type Department Care Team Description 03/26/2024 9:30 AM CHILDCARE CENTER ADMINISTRATOR Clinical Support [facility] Medical Office Building 2 Radiation Oncology [address] [place] [address] Squamous cell carcinoma of head and neck (Primary Dx) 03/26/2024 9:00 AM CHILDCARE CENTER ADMINISTRATOR Office Visit [facility] Medical Office Building 2 Radiation Oncology [address] [place] [address] Tino Mendoza MD Cancer of base of tongue (HCC) (Primary Dx) 03/25/2024 Anticoagulation Visit [facility] Cardiology [address] [facility] [address] [place] [address] Noah Blancas RN Paroxysmal atrial flutter (HCC) (Primary Dx); Hx of mechanical aortic valve replacement 03/03/2024 Anticoagulation Visit [facility] Cardiology [address] [facility] [address] [place] [address] Shereen Macdonald RN Paroxysmal atrial flutter (HCC) (Primary Dx); Hx of mechanical aortic valve replacement 02/22/2024 Anticoagulation Visit [facility] Cardiology [address] [facility] [address] [place] [address] Noah Blancas RN Paroxysmal atrial flutter (HCC) (Primary Dx); Hx of mechanical aortic valve replacement 02/20/2024 Telephone [facility] Cardiology [address] [facility] [address] [place] [address] Noah Donnelly MD 02/04/2024 Anticoagulation Visit [facility] Cardiology [address] [place] [address] [address] [place] [phone] Noah Blancas RN Paroxysmal atrial flutter (HCC) (Primary Dx); Hx of mechanical aortic valve replacement 01/29/[address] [facility] [address] [place] [phone] Nicole Banegas RN End of Navigation 01/28/2024 9:15 AM CHILDCARE CENTER ADMINISTRATOR Office Visit [facility] Oncology [address] [place] [address] [place] [phone] Aj Lua MD Cancer of base of tongue (HCC) (Primary Dx); Squamous cell carcinoma of head and neck 01/24/2024 Anticoagulation Visit [facility] Cardiology [address] [place] [address] [address] [place] [phone] Noah Blancas RN Paroxysmal atrial flutter (HCC) (Primary Dx); Hx of mechanical aortic valve replacement 01/23/2024 9:30 AM CHILDCARE CENTER ADMINISTRATOR Clinical Support [facility] Medical Office Building 2 Radiation Oncology [address] [place] [phone] Squamous cell carcinoma of head and neck (Primary Dx); Cancer of base of tongue (HCC); Moderate protein-calorie malnutrition; Pre-diabetes 01/23/2024 9:00 AM CHILDCARE CENTER ADMINISTRATOR Office Visit [facility] Medical Office Building 2 Radiation Oncology [address] [place] [address] Tino Mendoza MD Cancer of base of tongue (HCC) (Primary Dx) from Last 3 Months Allergies No known active allergies Medications metFORMIN (GLUCOPHAGE) 500 mg tablet Take 1 tablet (500 mg total) by mouth 2 (two) times a day with meals Active docusate sodium (COLACE) 100 mg capsuleIndicati ons:constipatio n Take 1 capsule (100 mg total) by mouth 2 (two) times a day 30 capsule Active HYDROcodone-alonzo taminophen (NORCO) 10-325 mg per tabletIndicatio ns:Pain Take 1 tablet by mouth every 6 (six) hours as needed for pain 28 tablet Active aspirin 81 mg enteric coated tablet Take 1 tablet (81 mg total) by mouth daily Active amoxicillin 500 mg tablet/capsule TAKE 4 CAPSULES BY MOUTH 1 HOUR PRIOR TO PROCEDURE. 4 tablet/cap aneesh Active Additional Information Patient not taking.Reported on [...] MOUTH EVERY DAY DIRECTED 30 tablet 11 024 Active flecainide (TAMBOCOR) 100 mg tablet Take [...] BY MOUTH EVERY NIGHT 90 tablet 3 Active enoxaparin (LOVENOX) 100 mg/mL syringe Inject [...] 70 Gy with concurrent chemotherapy completed 10/23/23 (Chanell/Reji) Moderate protein-calorie malnutrition 12/05/2022 Pain and swelling of knee, left 12/04/2022 Total knee replacement status, left 11/21/2022 Gastroesophageal reflux disease 06/20/2022 Overview (06/20/2022): GERD H/O mechanical aortic valve replacement 06/21/19 23 A-fib 06/20/2022 HTN (hypertension) 06/20/2022 HLD (hyperlipidemia) [...] (05/19/2016): Atrial flutter Shortness of breath 12/07/2010 Social History Tobacco Use Types Packs/Day Years [...] week 11/22/2022 How often do you attend [employer] or [facility] services? 1 to 4 times per year [...] on file Legal Sex Male 11:08 AM CHILDCARE CENTER ADMINISTRATOR Gender Identity Male 07/24/2023 3:20 PM CDT Sexual Orientation Straight 07/24/2023 3: 20 PM CDT Last Filed Vital Signs Vital Sign Reading Time Taken Comments Blood Pressure 166/77 03/26/2024 9:08 AM CHILDCARE CENTER ADMINISTRATOR Pulse 55 03/26/2024 9:08 AM CHILDCARE CENTER ADMINISTRATOR Temperature 36.6 C (97.9 F) 01/28/2024 9:28 AM CHILDCARE CENTER ADMINISTRATOR Respiratory Rate 16 01/28/2024 9:28 AM CHILDCARE CENTER ADMINISTRATOR Oxygen Saturation 100% 03/26/2024 9:08 AM CHILDCARE CENTER ADMINISTRATOR Inhaled Oxygen Concentration - - Weight 79.4 kg (175 lb) 03/26/2024 9:08 AM CHILDCARE CENTER ADMINISTRATOR Height 175.3 cm (5' 9 ) 11/22/2023 10:34 AM CDT Body Mass Index 25.84 11/22/2023 10:34 AM CDT Plan of Treatment Not on file Medical Devices Implanted Type Area Science Specialist Device Identifier Shelf Expiration Date Model / Serial / Lot Prosthetic Valve Prosthetic Valve N/A: Aortic Valve [employer] Component Femoral Knee Porous Cruciate Retaining Standard Left Persona Trabecular Metal Size 11 [place] Chromium [id number] - [id number] Implanted:Qty : 1 on 11/21/2022 by Juan Rosenberg MD at [facility] Left: Knee [employer] [id number] 1 12/14/2031 [id number] / / [id number] [employer] Persona 10mm Knee Left 8-11 G-H Insert Articular Vivacit-E [id number] - [id number] Implanted:Qty : 1 on 11/21/2022 by Juan Rosenberg MD at [facility] Left: Knee [employer] [id number] 08/17/2027 [id number] / / [id number] [employer] Baseplate Tibial Knee Porous Left Fixed Persona Size G Tivanium [id number] - [id number] Implanted:Qty : 1 on 11/21/2022 by Juan Rosenberg MD at [facility] Left: Knee [employer] 08/23/2030 [id number] / / [id number] [employer] Persona 10mm Knee Left 8-11 G-H Insert Articular Vivacit-E [id number] - [id number] Implanted:Qty : 1 on 12/04/2022 by Juan Rosenberg MD at [facility] Left: Knee [employer] [id number] 09/13/2027 [id number] / / [id number] Procedures Procedure Name Priority Date/Time Associated Diagnosis Comments PROTIME-INR Routine 03/25/2024 PROTIME-INR Routine 03/01/2024 PROTIME-INR Routine 02/22/2024 PROTIME-INR Routine 02/04/2024 PROTIME-INR Routine 01/24/2024 from Last 3 Months Results * (ABNORMAL) Protime-INR (03/25/2024) INR 2.60(A) 0.90 - 1.10 EXTERNAL LAB Blood Historical Provider MD LAB BLOOD ORDERABLES Aminata l Result EXTERNAL LAB * (ABNORMAL) Protime-INR (03/01/2024) INR 3.10(A) 0.90 - 1.10 EXTERNAL LAB Blood Historical Provider MD LAB BLOOD ORDERABLES Aminata l Result EXTERNAL LAB * (ABNORMAL) Protime-INR (02/22/2024) INR 2.20(A) 0.90 - 1.10 EXTERNAL LAB Blood Historical Provider MD LAB BLOOD ORDERABLES Aminata l Result EXTERNAL LAB * (ABNORMAL) Protime-INR (02/04/2024) INR 2.90(A) 0.90 - 1.10 EXTERNAL LAB Blood Result [facility] Provider MD LAB BLOOD ORDERABLES Aminata l Result EXTERNAL LAB * (ABNORMAL) Protime-INR (01/24/2024) INR 3.60(A) 0.90 - 1.10 EXTERNAL LAB Blood Result [facility] Provider MD LAB BLOOD ORDERABLES Amniata l Result EXTERNAL LAB from Last 3 Months Insurance MEDICARE [facility] MEDICARE [facility] MEDICARE [facility] Advance Directives For more information, please contact: [phone] * Full Code (Latest Code Status on [...] 8:38 AM 07/13/2021 4:49 AM Care Teams Flame Burner Relationship Specialty Start Date End Date Chema Perez MD [address] [place] [address] PCP - General Family Medicine 07/31/23 Chaparro Hameed MD [address] [facility] [address], [place] [address] Consulting Physician Cardiology 07/29/21 Laith Traylor MD [address] [place] [address] Referring Physician Otolaryngology 07/16/23 Aj Lua MD [address] [facility] [address] [place] [address] Medical Oncologist/Ski Patrol Officer Medical Oncology 07/27/23 [place] [address] [place] [address] Radiation Oncologist Radiation Oncology 07/27/23 Laith Banegas MD [address] [facility] DEPT OTOLARYNGOLOGY, [address] [address] Surgeon Otolaryngology 08/02/23
[2024-04-18 08:20] LABS: Basophils Percent Auto 0.2 % (0.2-1.2); Eosinophils Absolute Auto 0.1 K/mm3 (0-0.3); Eosinophils Percent Auto 1.8 % (0-4.4); Hematocrit 29.1 % (42.0-52.0); Hemoglobin 9.6 g/dL (14.0-18.0); Immature Granulocyte Absolute 0.02 K/mm3 (0.00-0.031); Immature Granulocyte Percent A 0.4 % (0-0.5); Lymphocytes Absolute Auto 0.57 K/mm3 (0.9-3.2); Lymphocytes Percent Auto 12.5 % (18.3-44.2); Mean Corpuscular Hemoglobin 31.5 pg (26-34); Mean Corpuscular Volume 95.4 fl (80-100); Mean Platelet Volume 10.4 fl (7.4-10.4); Monocytes Absolute Auto 0.3 K/mm3 (0.1-0.6); Monocytes Percent Auto 7.2 % (2.6-8.5); Neutrophils Absolute Auto 3.6 K/mm3 (1.3-6.7); Neutrophils Percent Auto 77.9 % (45.5-73.1); Platelet Count Result 178 k/mm3 (150-375); Red Blood Count 3.05 M/mm3 (4.6-6.20); Red Cell Distribution Width 13.4 % (11.5-14.5); White Blood Count 4.6 K/mm3 (4.5-10.0)
[2024-04-18 08:50] LABS: Alanine Aminotransferase 34 U/L (6-50); Albumin Level 4.4 g/dL (3.5-5.1); Alkaline Phosphatase 68 U/L (38-126); Anion Gap 9 mmol/L (4-12); Aspartate Amino Transferase 38 U/L (17-59); Bilirubin,Total 0.5 mg/dL (0.2-1.3); Blood Urea Nitrogen 22 mg/dL (9-20); Calcium 9.7 mg/dL (8.4-10.2); Carbon Dioxide 29 mmol/L (22-30); Chloride 102 mmol/L (98-107); Estimated Glomerular Filt Rate 53; Glucose 141 mg/dL (65-110); Iron 95 ug/dL (49-181); Potassium 4.3 mmol/L (3.4-5.0); Sodium 140 mmol/L (137-145)
[2024-04-18 09:04] LABS: Hemoglobin A1C 5.8 % (<5.7)
== END 2024-04-18 07:00 | disposition home or self-care (01) ==
PROVIDERS: PCP Family Medicine; Visit Provider Family Medicine
DX: E78.5 Hyperlipidemia, unspecified (principal); E11.9 Type 2 diabetes mellitus without complications; I10 Essential (primary) hypertension; D64.9 Anemia, unspecified; I48.91 Unspecified atrial fibrillation; R53.83 Other fatigue; G47.30 Sleep apnea, unspecified
CPT/HCPCS: 36415; 80053; 83036; 83540; 84443; 85025

== ENCOUNTER 2024-07-28 07:04 | Outpatient (RCR) | payer MEDICARE, SELFPAY ==
[2024-05-13 08:38] LABS: Prothrombin Time 39.1 Seconds (11.1-14.7)
[2024-06-13 11:27] LABS: INR 3.9; Prothrombin Time 38.8 Seconds (11.1-14.7)
[2024-07-01 07:49] LABS: INR 3.8; Prothrombin Time 38.3 Seconds (11.1-14.7)
[2024-07-28 08:04] LABS: INR 2.8; Prothrombin Time 28.5 Seconds (11.1-14.7)
== END 2024-08-11 23:59 | disposition home or self-care (01) ==
LOC: ANHLAB 07:04
PROVIDERS: PCP Family Medicine; Visit Provider Internal Medicine Cardiovascular Disease
DX: Z51.81 Encounter for therapeutic drug level monitoring (principal); I48.0 Paroxysmal atrial fibrillation; Z79.01 Long term (current) use of anticoagulants
CPT/HCPCS: 36415; 85610

== ENCOUNTER 2024-10-02 06:45 | Outpatient (RCR) | payer MEDICARE, SELFPAY ==
[2024-09-01 15:39] LABS: Prothrombin Time 46.9 Seconds (11.1-14.7)
[2024-09-01 16:32] LABS: INR 5.5
[2024-09-10 08:44] LABS: INR 4.4; Prothrombin Time 40.3 Seconds (11.1-14.7)
[2024-10-02 07:58] LABS: INR 4.4; Prothrombin Time 39.6 Seconds (11.1-14.7)
== END 2024-10-21 08:12 | disposition home or self-care (01) ==
LOC: ANHLAB 06:45
PROVIDERS: PCP Family Medicine; Visit Provider Internal Medicine Cardiovascular Disease
DX: Z51.81 Encounter for therapeutic drug level monitoring (principal); I48.0 Paroxysmal atrial fibrillation; Z79.01 Long term (current) use of anticoagulants
CPT/HCPCS: 36415; 85610

== ENCOUNTER 2025-01-12 06:50 | Outpatient (RCR) | payer MEDICARE, SELFPAY ==
[2024-10-21 07:29] LABS: INR 2.9; Prothrombin Time 29.4 Seconds (11.1-14.7)
[2024-11-10 15:47] LABS: INR 3.1; Prothrombin Time 30.5 Seconds (11.1-14.7)
[2024-12-11 08:21] LABS: INR 3.0; Prothrombin Time 29.8 Seconds (11.1-14.7)
[2025-01-12 07:32] LABS: INR 3.6; Prothrombin Time 34.4 Seconds (11.1-14.7)
== END 2025-01-19 23:59 | disposition home or self-care (01) ==
LOC: ANHLAB 06:50
PROVIDERS: PCP Family Medicine; Visit Provider Internal Medicine Cardiovascular Disease
DX: Z51.81 Encounter for therapeutic drug level monitoring (principal); Z95.2 Presence of prosthetic heart valve; Z79.01 Long term (current) use of anticoagulants
CPT/HCPCS: 36415; 85610